=== PATIENT | male | born 1995 | race Caucasian/White ===

== ENCOUNTER 2020-03-08 12:00 | Emergency (ER) | payer OTHER, SELFPAY ==
[2020-03-08 12:43] VITALS: BP 146/80; PULSE 73; RESP 18; TEMP 37; O2SAT 100
--- NOTE | 2020-03-08 13:24 | ED.GENADULT ---
HPI - General Adult General Chief complaint: Abdominal Pain Stated complaint: Abd pain Time Seen by Provider: 03/08/20 13:20 Source: patient Mode of arrival: ambulatory Limitations: no limitations History of Present Illness HPI narrative: Keon Krueger is a 24 yo with a PMH of significant ulcerative colitis. He comes to express care with mid-abd pain. Patient states that started on has continued through the weekend with no improvement, describes more of a spastic pain where it gets painful but even at rest is about a 4 out of 10. 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 Related Data Home Medications Medication Instructions Recorded Confirmed mesalamine [Apriso] 0.375 g PO DAILY 03/08/20 03/08/20 Allergies Allergy/AdvReac Type Severity Reaction Status Date / Time UNKNOWN AdvReac Unknown Unknown Uncoded 03/08/20 13:12 Review of Systems Review of Systems: Narrative: CONSTITUTIONAL: Denies fever, chills, sweats. EYES: Denies visual changes, redness, discharge. ENT: Denies rhinorrhea, congestion, sore throat, otalgia. CARDIOVASCULAR: Denies chest pain, palpitations, edema. RESPIRATORY: Denies dyspnea, wheezing, cough GASTROINTESTINAL: Has abdominal pain, nausea, vomiting, has diarrhea with blood. GENITOURINARY: Denies dysuria, hematuria, abnormal discharge SKIN: Denies rash or itching. NEUROLOGIC: Denies numbness, or focal weakness. PSYCHIATRIC: Denies anxiety or depression. PMFSH Family History Family History Other Colitis Social History Social History (Updated 03/08/20 @ 13:34 by Abbie Torres CNP) Smoking status: Never smoker Alcohol intake: never Comments At time of signature, I agree with nursing past medical, surgical, social and family history. There is no relevant family history pertinent to the presenting complaint. Blood pressure is elevated at this visit probably due to the circumstances of the visit Exam Narrative: Exam Narrative: GENERAL: This is a well-nourished, well-developed patient, in moderate distress. Patient is pale HEAD: normocephalic, atraumatic. EYES: Sclera clear/white. Vision is grossly intact. EARS: External ears normal. Hearing grossly intact. NOSE: External nose normal without nasal discharge, nares without redness, no rhinorrhea. THROAT: Mucous membranes moist, NECK: Neck supple, CARDIOVASCULAR: Regular rate and rhythm without murmurs, gallops, or rubs. RESPIRATORY: Clear to auscultation. Breath sounds equal bilaterally. No wheezes, rales, or rhonchi. GASTROINTESTINAL: Abdomen soft, tender mid abdomen, states pain is spastic, SKIN: warm, intact with no suspicious lesions or rash, good texture and turgor. NEURO: awake, alert, and oriented to person, place and time. There were no obvious focal neurologic abnormalities. Steady gait EXTREMITIES: Normal range of motion. BACK: Nontender without deformity Course Course Emergency Course: UA-results show trace of blood, patient denies dysuria Discussion with patient and the fact that he is compliant with his ulcerative colitis medication, the patient go to the ER at [facility] GI physician is on staff Patient probably needs blood work to rule out other differential diagnosis for abdominal pain in addition to a CT of his abdomen Referred to acute care hospital emergency room for further follow-up Vital Signs Vital signs: Vital Signs Temperature 98.6 F 03/08/20 12:43 Pulse Rate 73 03/08/20 12:43 Respiratory Rate 18 03/08/20 12:43 Blood Pressure 146/80 H 03/08/20 12:43 Pulse Oximetry 100 03/08/20 12:43 Temperature 98.6 F 03/08/20 12:43 Pulse Rate 73 03/08/20 12:43 Respiratory Rate 18 03/08/20 12:43 Blood Pressure 146/80 H 03/08/20 12:43 Pulse Oximetry 100 03/08/20 12:43 Medical Decision Making Differential Diagnos
== END 2020-03-08 13:40 | disposition short-term general hospital (02) ==
PROVIDERS: Emergency Provider Nurse Practitioner; PCP Physician Assistant
DX: R10.84 Generalized abdominal pain (principal)
CPT/HCPCS: 81003; 99212; G0463

== ENCOUNTER 2020-08-02 16:40 | Outpatient (CLI) | payer OTHER, SELFPAY ==
[2020-08-02 17:18] LABS: Basophils Absolute Auto 0.01 K/mm3 (0.00-0.10); Basophils Percent Auto 0.1 % (0.0-1.0); Immature Granulocyte Absolute 0.31 K/mm3 (0.00-0.00); Immature Granulocyte Percent A 2.1 % (0.0-0.0); Lymphocytes Absolute Auto 1.17 K/mm3 (1.10-4.50); Lymphocytes Percent Auto 8.1 % (18.0-42.0); Mean Corpuscular Hemoglobin 16.1 pg (27.0-31.0); Mean Corpuscular Volume 70.1 fL (78.0-102.0); Monocytes Absolute Auto 0.56 K/mm3 (0.10-0.90); Monocytes Percent Auto 3.9 % (2.0-11.0); Neutrophils Absolute Auto 12.4 K/mm3 (1.7-7.2); Neutrophils Percent Auto 85.8 % (50.0-70.0); Nucleated Red Blood Cells Absolute Auto 0.07 K/mm3 (0.00-0.00); Nucleated Red Blood Cells Perc 0.5 % (0-0.0); Platelet Count Result 511 K/mm3 (150-420); Red Blood Count 2.54 M/mm3 (4.70-6.10); Red Cell Distribution Width 21.1 % (11.6-14.4); White Blood Count 14.5 K/mm3 (4.8-10.8)
[2020-08-02 17:58] LABS: Alanine Aminotransferase 17 U/L (16-63); Albumin Level 3.5 g/dL (3.4-5.0); Alkaline Phosphatase 55 U/L (46-116); Anion Gap 8 mmol/L (8-16); Aspartate Amino Transferase < 10 U/L (15-37); Bilirubin,Total 0.2 mg/dL (0.00-1.00); Blood Urea Nitrogen 17 mg/dL (7-18); Calcium 8.8 mg/dL (8.5-10.1); Carbon Dioxide 26 mmol/L (21-32); Chloride 104 mmol/L (98-108); Estimated Glomerular Filt Rate > 60; Glucose 145 mg/dL (70-99); Osmolality Calculated 290 mOsm/kg (285-295); Potassium 4.6 mmol/L (3.5-5.1); Sodium 138 mmol/L (136-145); Thyroid Stimulating Hormone 0.95 uIU/mL (0.36-3.74)
[2020-08-02 18:08] LABS: Hemoglobin 4.1 g/dL (14.0-18.0)
[2020-08-02 18:09] LABS: Hematocrit 17.8 % (40.0-54.0)
[2020-08-04 18:01] LABS: SARS-CoV-2 RNA PCR Negative
== END 2020-08-02 16:41 | disposition home or self-care (01) ==
LOC: CHSLAB 16:47
PROVIDERS: PCP Physician Assistant; Visit Provider Physician Assistant
DX: B34.9 Viral infection, unspecified (principal); R53.83 Other fatigue; Z20.828 Contact with and (suspected) exposure to other viral communicable diseases
CPT/HCPCS: 36415; 80053; 84439; 84443; 85025; 87635; C9803; U0003

== ENCOUNTER 2020-08-02 17:59 | Observation (INO) | payer OTHER, SELFPAY ==
[2020-08-02] VITALS (9 sets, daily range): BP systolic 125–149; BP diastolic 62–79; PULSE 70–120; RESP 18–24; TEMP 36.8–37.9; O2SAT 99–100; BMI 30.7
[2020-08-02 18:14] LABS: Basophils Absolute Auto 0.01 K/mm3 (0.00-0.10); Basophils Percent Auto 0.1 % (0.0-1.0); Immature Granulocyte Absolute 0.33 K/mm3 (0.00-0.00); Immature Granulocyte Percent A 2.4 % (0.0-0.0); Lymphocytes Absolute Auto 1.22 K/mm3 (1.10-4.50); Lymphocytes Percent Auto 8.7 % (18.0-42.0); Mean Corpuscular HGB Conc 23.9 g/dL (32.0-36.0); Mean Corpuscular Hemoglobin 16.5 pg (27.0-31.0); Mean Corpuscular Volume 69.2 fL (78.0-102.0); Mean Platelet Volume 10.6 fl (8.7-11.0); Monocytes Absolute Auto 0.64 K/mm3 (0.10-0.90); Monocytes Percent Auto 4.6 % (2.0-11.0); Neutrophils Absolute Auto 11.8 K/mm3 (1.7-7.2); Neutrophils Percent Auto 84.2 % (50.0-70.0); Nucleated Red Blood Cells Absolute Auto 0.07 K/mm3 (0.00-0.00); Nucleated Red Blood Cells Perc 0.5 % (0-0.0); Platelet Count Result 505 K/mm3 (150-420); Red Cell Distribution Width 21.2 % (11.6-14.4)
[2020-08-02 18:18] LABS: Hemoglobin 4.3 g/dL (14.0-18.0)
--- NOTE | 2020-08-02 18:25 | ED.GENADULT ---
HPI - General Adult General Chief complaint: Recheck/Abnormal Lab/Rx Stated complaint: rebecca wants pt to get a blood transfusion Source: patient and family Mode of arrival: ambulatory Limitations: no limitations History of Present Illness HPI narrative: Keon is a 24M with a PMH of ulcerative colitis that was sent to the ED by his doctor for a critical low hemoglobin. He has had worsening fatigue and exercise intolerance for 4 weeks and has been getting very pale. He denies any CP, SOB, N/V, hematemesis, hematochezia, and melena. He is on a prednisone burst currently and believes his stool is getting more formed. Related Data Home Medications Medication Instructions Recorded Confirmed mesalamine [Apriso] 0.375 g PO DAILY 03/08/20 08/02/20 prednisone See Rx Instructions .ROUTE .COMPLEX 08/02/20 08/02/20 Allergies Allergy/AdvReac Type Severity Reaction Status Date / Time UNKNOWN AdvReac Unknown Unknown Uncoded 03/08/20 13:12 Review of Systems Constitutional: Constitutional: Denies chills and Denies fever(s) Eyes: Eyes: Reports no additional eye complaints ENT: Reports system reviewed and no additional complaints, except as documented Cardiovascular: Cardiovascular: Reports as per HPI and Reports no additional cardiovascular complaints Respiratory: Respiratory: Reports as per HPI Gastrointestinal: Gastrointestinal: Reports as per HPI Genitourinary: Genitourinary: Reports no additional male genitourinary complaints Musculoskeletal: Musculoskeletal: Reports no additional musculoskeletal complaints Integumentary/Breasts: Skin/Breast: Reports system reviewed and no additional complaints, except as docu Neurologic: Reports system reviewed and no additional complaints, except as documented Psychiatric: Psychiatric: Reports no additional psychiatric complaints [facility] Family History Family History Other Colitis Social History Social History Smoking status: Never smoker Alcohol intake: never Exam Const: General: no acute distress and alert Orientation/consciousness: patient oriented x3 Limitations: No altered mental status HENMT: Head: normal to inspection Eyes: Conjunctivae: conjunctivae normal Pupils: Equal, round and reactive pupils present Neck: Neck: normal visual inspection Chest: Chest palpation & inspection: normal inspection of the chest Resp: Effort & Inspection: normal respiratory effort Auscultation: clear to auscultation bilaterally Cardio: Rate: tachycardic Rhythm: regular rhythm GI: GI Palp: Yes Soft to palpation, No Tenderness to palpation present (GI) and No Guarding due to palpation present (GI) Urinary Catheter: Urinary Catheter: patent and draining Back/Spine/Pelvis: Back: no CVA tenderness Skin: Rashes: no rashes Other: Very pale color Neuro: General: patient oriented x3 and moves all extremities Extrem: General: normal to inspection Psych: Mental Status: mental status grossly normal Course Course Emergency Course: Keon was evaluated. Labs were ordered. Repeat labs showed persistently low hgb. Ordered 2u PRBC. I attempted to contact his GI Dr. (Dr. 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 He will be admitted to observation for transfusions and monitoring. His GI group will be contacted tomorrow. Will continue prednisone and mesalamine. Vital Signs Vital signs: Vital Signs Temperature 99.3 F 08/02/20 18:17 Pulse Rate 120 H 08/02/20 18:17 Respiratory Rate 24 H 08/02/20 18:17 Blood Pressure 149/79 H 08/02/20 18:17 Pulse Oximetry 100 08/02/20 18:17 Temperature 99.3 F 08/02/20 18:17 Pulse Rate 120 H 08/02/20 18:17 Respiratory Rate 24 H 08/02/20 18:17 Blood Pressure 149/79 H 08/02/20 18:17 Pulse Oximetry 100 08/02/20 18:17 Medical Decision Making Vital Signs Vital Signs
[2020-08-02] MEDS: diphenhydrAMINE HCl CAP 25 MG CAPSULE 50 MG PO (19:52)
[2020-08-02 20:01] LABS: Add Urine Microscopic? NO; Appearance Urine Clear (Clear); Bilirubin Urine Negative (Negative); Blood Urine Negative (Negative); Color Urine Yellow (Yellow); Glucose Urine UA Negative (Negative); Ketones Urine Negative (Negative); Leukocyte Esterase Ur Negative (Negative); Nitrate Urine Negative (Negative); Protein Urine Negative (Negative); Specific Grav Ur 1.015 (1.010-1.020); Urobilinogen Urine 0.2 mg/dL (0.2-1.0); pH Urine 6.5 (5.0-8.0)
--- NOTE | 2020-08-02 20:12 | PC.NURSE ---
report to kaleigh pt to go to room 204
--- NOTE | 2020-08-02 20:50 | ADMGEN ---
This patient, Keon Krueger, was admitted to 2nd Floor Room 204-2. Patient oriented to hospital policies and general routines including ID bracelet, bed and alarms, visiting hours, pain management, procedures, bathroom and other care routines, personal items, smoking policy, room service/diet, and visiting hours. Patient encouraged to report perceived risks to care and to ask questions if they do not understand what they are told or what they should do.
[2020-08-02 22:46] LABS: Hematocrit 17.6 % (40.0-54.0); Hemoglobin 4.6 g/dL (14.0-18.0)
[2020-08-03] VITALS (16 sets, daily range): BP systolic 117–133; BP diastolic 68–90; PULSE 70–98; RESP 18; TEMP 36.1–37.4; O2SAT 97–100
[2020-08-03 02:40] LABS: Basophils Absolute Auto 0.01 K/mm3 (0.00-0.10); Basophils Percent Auto 0.1 % (0.0-1.0); Eosinophils Absolute Auto 0.03 K/mm3 (0.02-0.50); Eosinophils Percent Auto 0.2 % (1.0-6.0); Immature Granulocyte Absolute 0.16 K/mm3 (0.00-0.00); Immature Granulocyte Percent A 1.2 % (0.0-0.0); Lymphocytes Absolute Auto 3.61 K/mm3 (1.10-4.50); Mean Corpuscular HGB Conc 26.7 g/dL (32.0-36.0); Mean Corpuscular Hemoglobin 19.4 pg (27.0-31.0); Mean Corpuscular Volume 72.7 fL (78.0-102.0); Mean Platelet Volume 10.3 fl (8.7-11.0); Monocytes Absolute Auto 1.19 K/mm3 (0.10-0.90); Monocytes Percent Auto 8.6 % (2.0-11.0); Neutrophils Absolute Auto 8.9 K/mm3 (1.7-7.2); Neutrophils Percent Auto 63.9 % (50.0-70.0); Nucleated Red Blood Cells Absolute Auto 0.06 K/mm3 (0.00-0.00); Nucleated Red Blood Cells Perc 0.4 % (0-0.0); Platelet Count Result 421 K/mm3 (150-420); Red Blood Count 2.89 M/mm3 (4.70-6.10); Red Cell Distribution Width 22.2 % (11.6-14.4); White Blood Count 13.9 K/mm3 (4.8-10.8)
[2020-08-03 02:45] LABS: Hemoglobin 5.6 g/dL (14.0-18.0)
--- NOTE | 2020-08-03 07:46 | PM.IMHP ---
H&P: HPI History of Present Illness Date/Time: 08/03/20 07:46 Chief Complaint: Weakness, fatigue Narrative: Keon Krueger is a 24 year old male who states he has been dealing with his ulcerative colitis for a while last colonoscopy approximately 1 year ago. Patient states that approximately 2 weeks ago he was throwing up and in the emesis there were some streaks of blood. Patient made a sound like it was minimal. Patient states he has also had a little bit of blood in his stool as of 2 weeks ago due to a flare up of his UC. Patient made this sound like it was a minimal event as well. Patient denies ever having to have transfusions in the past. Patient currently taking prednisone and mesalamine for his last flare-up. Patient denies any chest pain at this time nor did he have any prior to coming to the hospital. Does admit to being tired with little shortness of breath prior to coming to the ER. Review of Systems Constitutional: Constitutional: Reports no additional constitutional complaints, Denies body ache(s), Denies chills, Denies fever(s) and Reports weakness Cardiovascular: Cardiovascular: Reports no additional cardiovascular complaints, Denies chest pain, Denies chest pain at rest and Denies chest pain with activity Respiratory: Respiratory: Reports no additional respiratory complaints, Denies dyspnea and Reports dyspnea on exertion Gastrointestinal: Gastrointestinal: Reports no additional gastrointestinal complaints, Denies melena, Denies hematochezia and Denies GI cramping PMFSH Past Medical History Medical History (Updated 08/03/20 @ 08:45 by TYRELL Euceda) Ulcerative colitis Family History Family History Other Colitis Social History Social History Smoking status: Never smoker Alcohol intake: never Substance use: never Gender identity (if verbalized by the patient): Male Spiritual care concerns: No Meds Home Medications and Allergies Home Medications Medication Instructions Recorded Confirmed Type mesalamine [Apriso] 0.375 g PO DAILY 03/08/20 08/02/20 History prednisone See Rx Instructions .ROUTE .COMPLEX 08/02/20 08/02/20 History Allergies Allergy/AdvReac Type Severity Reaction Status Date / Time UNKNOWN AdvReac Unknown Unknown Uncoded 03/08/20 13:12 Vital Signs Vital Signs - 24 hr 08/02/20 18:17 08/02/20 19:43 08/02/20 19:59 Temperature 99.3 F 100 F H 100 F H Pulse Rate 120 H 98 97 Respiratory Rate 24 H 21 H 20 Blood Pressure 149/79 H 125/72 131/77 Pulse Oximetry 100 100 100 08/02/20 20:15 08/02/20 20:45 08/02/20 20:59 Temperature 100.3 F H 100.3 F H Pulse Rate 83 83 Respiratory Rate 20 18 18 Blood Pressure 125/72 132/73 132/73 Pulse Oximetry 99 100 100 08/02/20 21:59 08/02/20 22:56 08/02/20 23:12 Temperature 98.2 F 98.6 F 99 F Pulse Rate 70 81 85 Respiratory Rate 18 18 18 Blood Pressure 129/72 127/70 130/62 Pulse Oximetry 100 100 100 08/03/20 00:12 08/03/20 01:08 08/03/20 02:00 Temperature 98.5 F 98.5 F 98.3 F Pulse Rate 88 80 76 Respiratory Rate 18 18 18 Blood Pressure 118/85 127/68 120/74 Pulse Oximetry 99 99 99 08/03/20 04:01 08/03/20 04:20 08/03/20 05:20 Temperature 98 F 98 F 97 F L Pulse Rate 79 72 81 Respiratory Rate 18 18 18 Blood Pressure 122/76 125/73 117/82 Pulse Oximetry 100 98 97 08/03/20 07:15 Temperature 97.6 F Pulse Rate 70 Respiratory Rate 18 Blood Pressure 119/83 Pulse Oximetry 100 Exam Const: General: cooperative, comfortable, no acute distress, alert, awake and Physically active Nutritional Appearance: overweight Resp: Effort & Inspection: normal respiratory effort Auscultation: clear to auscultation bilaterally Cardio: Rate: regular rate Rhythm: regular rhythm Heart sounds: S2 normal heart sound present GI: GI Palp: Yes Soft to palpation and No Tenderness to palpation present (
[2020-08-03 08:15] LABS: Hematocrit 22.8 % (40.0-54.0)
[2020-08-03 08:22] LABS: Hemoglobin 6.4 g/dL (14.0-18.0)
--- NOTE | 2020-08-03 08:24 | PC.NURSE ---
Hospitalist notified of H/H results of 6.4, 22.8
[2020-08-03] MEDS: predniSONE 10 MG TABLET 50 MG BY MOUTH (08:25)
[2020-08-03 10:46] LABS: Reticulocyte Hemoglobin Conten 15.7 pg (28.0-35.0); Reticulocyte Percent 3.82 % (0.50-1.50)
--- NOTE | 2020-08-03 11:20 | PC.NURSE ---
This nurse spoke with patients Mother. Patient states mother can have information about patient. Mother reports that the 2 weeks prior to [place] patient had had bleeding in stool. States Patient went to doctor and that he was being treated with PO antibiotics. Due to condition not improving patient started oral prednisone onf 07-24-20.
[2020-08-03 11:21] LABS: Folic Acid 10.5 ng/mL (8.6->20); Iron 12 ug/dL (65-175); Percent Iron Saturation 3 % (12-57); Vitamin B12 287 pg/mL (193-986)
[2020-08-03 11:35] LABS: Ferritin < 1 ng/mL (26-388)
--- NOTE | 2020-08-03 12:50 | PC.NURSE ---
Unit of PRBC done transfusing. Patient tolerated well. Normal saline running till IV line clear. Patient resting in bed. Denies further needs.
[2020-08-03 13:53] LABS: Hematocrit 29.1 % (40.0-54.0); Hemoglobin 8.6 g/dL (14.0-18.0)
[2020-08-03 19:52] LABS: Occult Blood Positive (Negative)
--- NOTE | 2020-08-03 22:37 | PC.NURSE ---
pt resting in bed on computer, denies any needs at this time
--- NOTE | 2020-08-03 23:08 | PC.NURSE ---
pt c/o chest pressure with inspiration, Dr Little called and will come evaluate pt
--- NOTE | 2020-08-03 23:50 | PC.NURSE ---
Patient is sitting up in bed on his laptop. He states his chest pain has subsided now. He states he has had this since he was little and was told previously it was inflammation and it goes away as fast as it comes on. He states his mother had the same type of pain. Patient requested something to eat, ham sandwich and albert crackers provided. No complaints at this time and call light in reach.
--- NOTE | 2020-08-04 02:35 | PC.NURSE ---
Patient is laying down but awake. Denies any complaints at this time. Call light and needed items within reach.
[2020-08-04 04:00] VITALS: BP 120/80; PULSE 76; RESP 18; TEMP 36.6; O2SAT 99
[2020-08-04 05:42] LABS: Hematocrit 26.6 % (40.0-54.0); Hemoglobin 7.6 g/dL (14.0-18.0); Mean Corpuscular HGB Conc 28.6 g/dL (32.0-36.0); Mean Corpuscular Hemoglobin 21.4 pg (27.0-31.0); Mean Corpuscular Volume 74.9 fL (78.0-102.0); Platelet Count Result 370 K/mm3 (150-420); Red Blood Count 3.55 M/mm3 (4.70-6.10); Red Cell Distribution Width 24.7 % (11.6-14.4)
[2020-08-04 05:53] LABS: Anion Gap 9 mmol/L (8-16); Blood Urea Nitrogen 20 mg/dL (7-18); Carbon Dioxide 27 mmol/L (21-32); Chloride 104 mmol/L (98-108); Estimated CRCL calculation 125 ml/min; Estimated Glomerular Filt Rate > 60; Glucose 87 mg/dL (70-99); Osmolality Calculated 291 mOsm/kg (285-295); Potassium 4.7 mmol/L (3.5-5.1); Sodium 140 mmol/L (136-145)
[2020-08-04 07:50] VITALS: BP 127/77; PULSE 68; RESP 18; TEMP 36.9; O2SAT 100
[2020-08-04] MEDS: predniSONE 10 MG TABLET 50 MG BY MOUTH (09:15)
[2020-08-04] MEDS: FERROUS SULFATE 324 MG TABLET PO (09:15)
[2020-08-04] MEDS: PANTOPRAZOLE SODIUM IV 40 MG VIAL IV PUSH (09:16)
[2020-08-04 09:30] LABS: Hematocrit 29.5 % (40.0-54.0); Hemoglobin 8.2 g/dL (14.0-18.0)
--- NOTE | 2020-08-04 10:26 | PM.DS ---
DS: Admitting Diagnosis Admitting Diagnosis Admitting Diagnosis: severe anemia <Amauri SiegelLam VaughnTYRELL pollack - Last Filed: 08/04/20 10:44> DS: Discharge Diagnosis Discharge Diagnosis (1) Severe anemia: Code(s): D64.9 - Anemia, unspecified <Amauri LutherTYRELL - Last Filed: 08/04/20 10:44> Status: Acute <Amauri LutherTYRELL - Last Filed: 08/04/20 10:44> Assessment and Plan: 08/03/2020 Patient's hemoglobin was 4.1 upon arrival in the ER now after 3 units PRBCs hemoglobin has risen to 6.4 hematocrit 22.8 and patient will be getting his 4th unit of PRBCs and of course will recheck H&H thereafter, anemia workup 08/04/2020 H/H 8.2/29.5 now, H/H 7.6/26.6 at 0500 stable at this time and Pt has appointment with his GI Dr. Mcbride in the morning tomorrow <Amauri ChristalTYRELL Stone - Last Filed: 08/04/20 10:44> (2) Ulcerative colitis: Code(s): K51.90 - Ulcerative colitis, unspecified, without complications <Amauri SiegelTYRELL Stone - Last Filed: 08/04/20 10:44> Status: Acute <Amauri MendesTYRELL pollack - Last Filed: 08/04/20 10:44> Assessment and Plan: 08/03/2020 for the time being continue with home medications, will attempt to contact his GI provider, last colonoscopy approximately 1 year ago, will check stool for blood, Dr. Mcbride was out of the office however was able to talk with medical office secretary, patient has an appointment on August 12, 2020 which is a normal follow-up appointment, last colonoscopy was done January 04 of this year showing inflammation biopsy taken improve the results read to me no concern for any cancer chest indicated inflammation, on discharge will give patient a script for repeat blood work so that there is also be ready for his August 12, 2020 appointment 08/04/2020 appointment changed to tomorrow AM with Dr. Mcbride, pt to continue with current regimen of home medications, report accurate accounts of bloody stools and blood in vomit, Pt states that he did not want to take his steroid medication because he is going to be soon and did not want to gain weight as a side effect of the medication. <Amauri ChristalTYRELL Stone - Last Filed: 08/04/20 10:44> DS: Summary Hospital Course Hospital Course: Patient received blood transfusions hemoglobin that increased his hemoglobin and this was recheck and appears to be stable at this time. Patient does have a follow-up appoint with his GI specialist tomorrow morning and will need to follow-up with his primary within a week <TYRELL Euceda - Last Filed: 08/04/20 10:44> Time Spent with Patient Time attestation: Total time spent providing and/or coordinating discharge services: < 30 Minutes <Amauri ChristalTYRELL Stone - Last Filed: 08/04/20 10:44> Exam Const: General: cooperative, comfortable, no acute distress, alert, awake and Physically active <TYRELL Euceda - Last Filed: 08/04/20 10:44> Resp: Effort & Inspection: normal respiratory effort <Amauri ChristalTYRELL Stone - Last Filed: 08/04/20 10:44> Auscultation: clear to auscultation bilaterally <Amauri SiegelTYRELL Stone - Last Filed: 08/04/20 10:44> Cardio: Rate: regular rate <Amauri ChristalTYRELL Stone - Last Filed: 08/04/20 10:44> Rhythm: regular rhythm <Amauri ChristalTYRELL Stone - Last Filed: 08/04/20 10:44> Heart sounds: S1 normal heart sound present and S2 normal heart sound present <Amauri ChristalTYRELL Stone - Last Filed: 08/04/20 10:44> GI: GI Palp: Yes Soft to palpation and No Tenderness to palpation present (GI) <Amauri SiegelTYRELL Stone - Last Filed: 08/04/20 10:44> Auscultation: normal bowel sounds <Amauri ChristalTYRELL Stone - Last Filed: 08/04/20 10:44> Skin: General skin exam: pallor (improved a little since yesterday) <TYRELL Euceda - Last Filed: 08/04/20 10:44> Neuro: General: oriented to person, oriented to place and oriented to time <TYRELL Euceda - Last Filed: 08/04/20 10:44> Cranial nerves: Yes CN's
--- NOTE | 2020-08-04 12:05 | PC.NURSE ---
Patients mother here to transport him home. All belongings sent home with patient. Patient accompanied to front door, patient ambulated well. Left via private vehicle with parent. All discharge instructions sent home with patient.
[2020-08-07 20:51] LABS: Transferrin 335 mg/dL (188-341)
--- NOTE | 2020-08-12 11:55 | PC.NURSE ---
Pt states he received and understood his discharge instructions. Has no other comments.
== END 2020-08-04 12:05 | disposition home or self-care (01) ==
LOC: CHSED 19:49 → CHS2ND 20:13
PROVIDERS: Nurse Practitioner Family; Admitting Provider Family Medicine; Emergency Provider Family Medicine; PCP Physician Assistant; Visit Provider Family Medicine
DX: D64.9 Anemia, unspecified (principal); K51.90 Ulcerative colitis, unspecified, without complications
CPT/HCPCS: 36415; 36430; 80048; 81003; 82272; 82607; 82728; 82746; 83540; 83550; 84466; 85014; 85018; 85025; 85027; 85046; 86850; 86900; 86901; 86923; 96374; 99285; A9270; C9113; G0378; J7040; J7512; P9016

== ENCOUNTER 2021-08-26 11:58 | Emergency (ER) | payer OTHER, SELFPAY ==
[2021-08-26 12:05] VITALS: BP 109/89; PULSE 83; RESP 16; TEMP 36.9; O2SAT 99
[2021-08-26 12:08] VITALS: BP 109/89; PULSE 83; RESP 16; TEMP 36.9; O2SAT 99
--- NOTE | 2021-08-26 12:09 | ED.EAR ---
HPI - Ear Problem General Chief complaint: Ear Stated complaint: EAR WAX Time Seen by Provider: 08/26/21 12:09 Source: patient, RN notes reviewed and old records reviewed Mode of arrival: ambulatory Limitations: no limitations History of Present Illness HPI Narrative: 25-year-old male presents to [facility] with complaints of pain to the right ear since last p.m. Patient reports that his right ear feels clogged and he has some decreased hearing and also some feelings of dizziness today and he had to leave work today because of his symptoms. Patient states he did insert gently a Q-tip into his right ear last night but did not improve his symptoms. Patient reports hearing being muffled. Patient denies any acute fevers chills or sweats, voices no sore throat or any nasal congestion or drainage. He reports he has had his COVID vaccinations. MD Complaint: ear pain Location: right ear Related Data Home Medications Medication Instructions Recorded Confirmed azathioprine 08/26/21 famotidine 08/26/21 Allergies Allergy/AdvReac Type Severity Reaction Status Date / Time UNKNOWN AdvReac Unknown Unknown Uncoded 03/08/20 13:12 Review of Systems Review of Systems: CONSTITUTIONAL: Denies fever, chills, or sweats. EYES: Denies visual changes, redness, or discharge. ENT: Denies rhinorrhea, congestion, sore throat, positive for right ear otalgia, and decreased hearing in right ear with ear feeling clogged CARDIOVASCULAR: Denies chest pain, palpitations, or edema. RESPIRATORY: Denies cough or dyspnea. GASTROINTESTINAL: Denies abdominal pain, nausea, vomiting, or diarrhea. GENITOURINARY: Denies dysuria or hematuria. SKIN: Denies rash or itching. MUSCULOSKELETAL: Denies back pain, joint pain, or myalgia. NEUROLOGIC: Denies headache, numbness, or weakness. states some dizziness PSYCHIATRIC: Denies anxiety or depression. All systems reviewed & are unremarkable except as noted in HPI and below PMFSH Past Medical History Medical History (Updated 08/26/21 @ 12:34 by Kristal Quiles NP) Ulcerative colitis Family History Family History Other Colitis Social History Social History Smoking status: Never smoker Alcohol intake: never Substance use: never Gender identity (if verbalized by the patient): Male Spiritual care concerns: No Comments At time of signature, agree with nursing past medical, surgical, social and family history. There is no relevant family history pertinent to the presenting complaint Exam Narrative: GENERAL: Well-appearing, well-nourished, and in no acute distress. HEAD: Normocephalic, atraumatic. EYES: PERRLA and EOMI. ENT: Nares clear, no rhinorrhea or epistaxis. Mucous membranes moist. TM's normal with good light reflex, right ear canal was red and irritated prior to irrigation of right ear to remove cerumen, small amount of ear wax remains in right ear canal. throat pink with no lesions exudates or tonsil swelling noted. NECK: Supple. no lymphadenopathy CHEST: Clear to auscultation. No respiratory distress. no cough SAO2 99% on room air HEART: Regular rate and rhythm. No murmur heard. Normal peripheral pulses. ABDOMEN: Soft, nontender, nondistended, normal active bowel sounds. EXTREMITIES: Normal range of motion. No edema. SKIN: Warm, dry, no rash. NEURO: No focal deficits. Alert and oriented x3. Course Course Level of Care: Express Care Visit Vital Signs Vital signs: Vital Signs Temperature 36.9 C 08/26/21 12:05 Pulse Rate 83 08/26/21 12:05 Respiratory Rate 16 08/26/21 12:05 Blood Pressure 109/89 08/26/21 12:05 Pulse Oximetry 99 08/26/21 12:05 Temperature 36.9 C 08/26/21 12:08 Pulse Rate 83 08/26/21 12:08 Respiratory Rate 16 08/26/21 12:08 Blood Pressure 109/89 08/26/21 12:08 Pulse Oximetry 99 08/26/21 12:08 Procedures Ear Wax R
== END 2021-08-26 12:44 | disposition home or self-care (01) ==
PROVIDERS: Emergency Provider Registered Nurse; PCP Physician Assistant
DX: H61.21 Impacted cerumen, right ear (principal); H60.311 Diffuse otitis externa, right ear
CPT/HCPCS: 69210; 99213; A9270; G0463

== ENCOUNTER 2025-02-27 05:43 | Emergency (ER) | payer OTHER, SELFPAY ==
--- NOTE | ~2025-02-27 | CT_ITS ---
EXAMINATION: CT abdomen pelvis w con DATE: 02/27/2025 06:29 INDICATION: Right lower quadrant pain. History of colitis. TECHNIQUE: Computed tomography (CT) of the abdomen and pelvis was performed with 100 cc Omnipaque 350 intravenous contrast. The dose-length product was 1155.74 mGy-cm. Automated exposure control and ite rative reconstruction technique were employed. COMPARISON: None. FINDINGS: Dependent atelectasis. Heart size normal. No significant pleural or pericardial effusion. S mall hiatal hernia. There is a 4 mm right UPJ stone with mild hydronephrosis. There is a punctate 2 m m nonobstructing right renal stone. There is malrotation of the left kidney. Normal appendix. The aster er, spleen, pancreas, adrenal glands are unremarkable. Nonobstructive bowel gas pattern. No significa nt vascular abnormality. No lymphadenopathy. IMPRESSION: 1. Right UPJ stone with mild hydronephrosis. 2: Nonobstructing right nephrolithiasis. Reviewed, dictated and finalized at location A.
[2025-02-27 05:43] VITALS: BP 155/96; PULSE 82; RESP 24; TEMP 35.7; O2SAT 99
--- NOTE | 2025-02-27 05:44 | ED_ITS ---
HPI - Abdominal Pain General Chief Complaint: Abdominal Pain Stated Complaint: ABDOMINAL PAIN Time Seen by Provider: 02/27/25 05:44 Source: patient and family Mode of arrival: ambulatory Limitations: no limitations History of Present Illness HPI narrative: patient is a 29-year-old male with right lower quadrant abdominal pain for the past 2 hours at home. He has history of ulcerative colitis and was just in the hospital for the same. Associated nausea vomiting without diarrhea. normal BM yesterday. He did have a little diarrhea with the colitis flare last week. History of C diff. no history of kidney stones. MD elicited complaint: abdominal pain ( right lower quadrant) Pertinent past history: other ( Ulcerative colitis) Onset (ago): hour(s) (2) Pain Consistency: constant Location: RLQ Severity: severe Pain scale (0-10): 9 Quality: sharp Radiation: RUQ Migration to: no migration Exacerbating factors: nothing Relieving factors: nothing Context: confirms other ( acute onset of right lower quadrant abdominal pain 2 hours ago with associated nausea vomiting) Associated symptoms: nausea and vomiting Treatments prior to arrival: other ( none) Related Data Home Medications ?Medication ?Instructions ?Recorded ?Confirmed ?Last Taken ?Type azathioprine 50 mg tablet 08/26/21 Unknown History famotidine 40 mg tablet 08/26/21 Unknown History Allergies Allergy/AdvReac Type Severity Reaction Status Date / Time UNKNOWN AdvReac Unknown Unknown Uncoded 02/27/25 05:50 Review of Systems 2 Review of Systems: All systems reviewed & are unremarkable except as noted in HPI and below Constitutional: Constitutional: Reports no additional constitutional complaints Eyes: Eyes: Reports no additional eye complaints ENT: Reports system reviewed and no additional complaints, except as documented Cardiovascular: Cardiovascular: Reports no additional cardiovascular complaints Respiratory: Respiratory: Reports no additional respiratory complaints Gastrointestinal: Gastrointestinal: Reports no additional gastrointestinal complaints Genitourinary: Genitourinary: Reports no additional male genitourinary complaints Musculoskeletal: Musculoskeletal: Reports no additional musculoskeletal complaints Integumentary/Breasts: Skin/Breast: Reports system reviewed and no additional complaints, except as docu Neurologic: Reports system reviewed and no additional complaints, except as documented Psychiatric: Psychiatric: Reports no additional psychiatric complaints Endocrine: Endocrine: Reports no additional endocrine complaints Hematologic/Lymphatic: Hematologic/Lymphatic: Reports no additional hematologic/lymphatic complaints Allergic/Immunologic: Allergic/Immunologic: Reports no additional allergic/immunologic complaints [facility] Past Medical History Medical History Ulcerative colitis Family History Family History Other Colitis Social History Social History Smoking status: Never smoker Alcohol intake: never Substance use: never Gender identity (if verbalized by the patient): Male Spiritual care concerns: No Exam 2 Const: General: ill appearing Nutritional Appearance: well nourished O rientation/consciousness: patient oriented x3 Limitations: no limitations Other: acute distress of pain HENMT: Head: normal to inspection Ears: external ears normal F radha/Nose/Sinus: Normal external nose present Eyes: Conjunctivae: conjunctivae normal Pupils: Equal, round and reactive pupils present EOM: EOMs intact bilaterally Neck: Neck: normal visual inspection Chest: Chest palpation & inspection: normal inspection of the chest Resp: Effort & Inspection: normal respiratory effort and not labored A uscultation: clear to auscultation bilaterally and no crackles Cardio: Rate: regular rate Rhythm: regular rhythm Heart sounds: no murmurs GI: Inspection: non-distended GI Palp: Yes Soft to palpation ( slight firmness appreciated), Yes Tenderness to palpation present (GI) ( right lower quadrant /left lower quadrant), Yes Guarding due to palpation present (GI), No Rigid due to palpation, No Hernia present, No Palpable mass present and Yes Rebound tenderness present Auscultation: absent bowel sounds and Hypoactive bowel sounds present : General: Yes bladder normal to palpation Back/Spine/Pelvis: Back: no CVA tenderness Skin: General skin exam: normal color Rashes: no rashes Wounds: no wounds Neuro: General: patient oriented x3, moves all extremities, no meningeal signs, no focal motor deficits and CN's II-XI intact bilaterally Extrem: General: normal to inspection Psych: Mental Status: mental status grossly normal Affect: normal affect Attitude: cooperative Course Vital Signs Vital signs: Vital Signs Temperature 35.7 C L 02/27/25 05:43 Pulse Rate 82 02/27/25 05:43 Respiratory Rate 24 H 02/27/25 05:43 Blood Pressure 155/96 H 02/27/25 05:43 Pulse Oximetry 99 02/27/25 05:43 Oxygen Delivery Room Air 02/27/25 05:43 Temperature 35.7 C L 02/27/25 05:43 Pulse Rate 82 02/27/25 05:43 Respiratory Rate 24 H 02/27/25 05:43 Blood Pressure 155/96 H 02/27/25 05:43 Pulse Oximetry 100 02/27/25 06:28 Oxygen Delivery Non-Rebreather Mask 02/27/25 06:28 Oxygen Flow Rate 6 02/27/25 06:28 MDM - Abdominal Pain MDM Narrative Medical decision making narrative: patient is a 29-year-old male with right lower quadrant abdominal pain. History of colitis. We will do a GI abdominal pain workup at this time. Pain control. Lab Data Attestation: I reviewed the patient's lab results. 02/27/25 05:50 02/27/25 05:50 Labs: Lab Results 02/27/25 02/27/25 02/27/25 Range/Units 05:46 05:50 07:15 WBC 8.2 (4.8-10.8) K/mm3 RBC 5.09 (4.70-6.10) M/mm3 Hgb 14.4 (14.0-18.0) g/dL Hct 44.1 (40.0-54.0) % MCV 86.6 (78.0-102.0) fL MCH 28.3 (27.0-31.0) pg MCHC 32.7 (32-36) g/dL RDW 13.1 (11.6-14.4) % Plt Count 314 (150-420) K/mm3 MPV 11.0 (8.7-11.0) fl Immature Gran % (Auto) Not Reportable Neut % (Auto) Not Reportable Lymph % (Auto) Not Reportable [place] % (Auto) Not Reportable Eos % (Auto) Not Reportable Baso % (Auto) Not Reportable Lymph # (Auto) Not Reportable [place] # (Auto) Not Reportable Eos # (Auto) Not Reportable Baso # (Auto) Not Reportable Abs Immat Gran (auto) Not Reportable Absolute Neuts (auto) Not Reportable Absolute Nucleated RBC Not Reportable Total Counted 100 Neutrophils % (Manual) 41 L (46-73) % Band Neutrophils % 2 (0-6) % Lymphocytes % (Manual) 42 (18-44) % Monocytes % (Manual) 14 H (3-9) % Eosinophils % (Manual) 1 (1-6) % Nucleated RBC % Not Reportable Abs Neuts (Manual) 3.52 (1.3-6.7) K/mm3 Abs Lymphs (Manual) 3.44 (1.1-4.5) K/mm3 Abs Monocytes (Manual) 1.14 H (0.1-0.90) K/mm3 Absolute Eos (Manual) 0.08 (0.02-0.50) K/mm3 Platelet Estimate Adequate (Adequate) Schistocytes Not Reportable PT 11.4 (9.50-12.1) Seconds INR 1.0 APTT 24.5 (23.9-30.70) Sec Sodium 141 (137-145) mmol/L Potassium 2.9 L (3.4-5.0) mmol/L Chloride 107 (98-107) mmol/L Carbon Dioxide 24 (22-30) mmol/L Anion Gap 10 (4-12) mmol/L BUN 10 (9-20) mg/dL Creatinine 1.25 (0.7-1.3) mg/dL Estim Creat Clear Calc Not Reportable Estimated GFR > 60 (59 - ) Glucose 118 H (65-110) mg/dL Calculated Osmolality 292 (285-295) mOsm/kg Lactic Acid 2.1 H (0.4-2.0) mmol/L Calcium 9.0 (8.4-10.2) mg/dL Magnesium 1.7 (1.6-2.3) mg/dL Total Bilirubin 0.4 (0.2-1.3) mg/dL AST 28 (17-59) U/L ALT 22 (6-50) U/L Alkaline Phosphatase 70 (38-126) U/L Total Protein 7.5 (6.3-8.2) g/dL Albumin 4.1 (3.5-5.1) g/dL Lipase 44 (23-300) U/L Urine Color Pending Urine Appearance Pending Urine pH Pending Ur Specific [place] Pending Urine Protein Pending Urine Glucose (UA) Pending Urine Ketones Pending Ur Blood (Man) Pending Urine Nitrate Pending Urine Bilirubin Pending Urine Urobilinogen Pending Leukocyte Esterase Rfl Pending Imaging Data Attestation: I personally reviewed and interpreted this imaging study as follows: Radiologist's impression: ITS Impressions Abdomen/Pelvis CT 02/27/25 06:32 IMPRESSION: 1. Right UPJ stone with mild hydronephrosis. 2: Nonobstructing right nephrolithiasis. Discharge Plan Discharge Clinical Impression: Right ureteral calculus, Hypokalemia Patient Disposition: Home Condition: Improved Instructions: Kidney Stones (ED) Patient Language: Turkmen Prescriptions: New tamsulosin [Flomax] 0.4 mg capsule 0.4 mg PO DAILY Qty: 20 0RF hydrocodone-acetaminophen 5-325 mg tablet 1 tablet PO Q8H PRN (Reason: pain) Qty: 20 0RF Rx Instructions: 1-2 tabs per dose Medrol 2 mg tablet 2 mg PO BID 3 Days Qty: 6 0RF No Action ferrous sulfate 325 mg (65 mg iron) Tablet 324 mg PO DAILY Qty: 30 1RF famotidine 40 mg tablet azathioprine 50 mg tablet ofloxacin 0.3 % drops 10 drp RIGHT EAR DAILY 7 Days Qty: 10 0RF Rx Instructions: May dispense eyedrops if more economical Follow-up/Referrals: David,HALEY Gutierrez [Primary Care Provider] - Time of Disposition: 07:22
--- OUTSIDE RECORDS SUMMARY | 2025-02-27 05:45 | XMS_ITS | Clinical Summary ---
Author Organization [facility] Address [address] [place] [address] Care Team Providers Care Offset Plate Preparation Supervisor Name Role Phone Unavailable Primary Care Provider Unavailabl e Source Comments [facility],non-owned Affiliates and Associated Physician Practices is amultiple site organization consisting of ambulatory clinics and hospital sitesin [place], [place], [place] and [place]. This disclosure is being madepursuant to the Care Everywhere program and may not contain all information available regarding this patient. 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 Gender Identity Not on file Sexual Orientation Not on file Plan of Treatment Health Maintenance Due Date Last Done Comments HIV SCREENING 2012 HEPATITIS C SCREENING 10/13/2015 DTAP/TDAP/TD VACCINES (1 - Tdap) 2016 HEPATITIS B VACCINE (1 of 3 - 19+ 3-dose series) 2016 COVID-19 VACCINE ( - 2023-2 5 season) 2024 DEPRESSION SCREENING 08/06/2024 HPV VACCINE (1 - 3-dose SCDM series) 2024 INFLUENZA VACCINE (#1) 2025 ZOSTER VACCINE (1 of 2) 10/18/2047 HIB VACCINE Aged Out No longer eligi ble based on patient's age to complete this topic MENINGOCOCCAL (Group B) VACC INE SHARED DECISION-MAKING Aged Out No longer eligibl e based on patient's age to complete this topic MENINGOCOCCAL GROUPS A/C/Y/W VACCINE Aged Out No longer eligible b ased on patient's age to complete this topic PNEUMOCOCCAL VACCINE Aged Out No long er eligible based on patient's age to complete this topic
--- OUTSIDE RECORDS SUMMARY | 2025-02-27 05:45 | XMS_ITS | Encounter Summary ---
Author Organization [facility] Address [facility] [place] [address] Care Team Providers Care Spring Tier Name Role Phone Tee Mcbride MD Unavailable [phone] No, Physician Primary Care Provider [phone] Encounter Details Date Type Department Care Team (Late st Contact Info) Description 02/25/2025 Orders Only [facility] Gastroenterology at [address] [place] [address] Tee Mcbride MD [address] [place] [address] [address] [place] [address] Social History Tobacco Use Types Packs/Day Years Used Date Smoking Tobacco: Never Smokeless Tobacco: Never Alcohol Use Standard Drinks/Week Comments No 0 (1 standard drink = 0.6 oz pur e alcohol) AUDIT-C Answer Date Recorded Q1: How often do you have a drink containing alc ohol? Monthly or less 2024 Q2: How many drinks containi ng alcohol do you have on a typical day when you are drinking? 1 or 2 2024 Frequency of Binge Drinking Not on file 10/04 PHQ-2 Answer Date Recorded PHQ-2 Score 0 09/25/2019 Personal Safety Answer Date Recorded Have you ever been in or are you currently in a harmful physical or emotional relationship or is someone making you feel afraid or unsafe? 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 70 tablet 1 02/25/2025 documented in this encounter Plan of Treatment Upcoming Encounters Date Type Department Care Team (Late st Contact Info) Description 09/28/2025 8:55 AM HORSE BREAKER Hospital Encounter [address] [address] Tee Mcbride MD [address] [place] [address] DR BROCK [address] [place] [id number] 09/28/2025 8:55 AM HORSE BREAKER - 09/28/2025 9:25 AM HORSE BREAKER Surgery [address] [address] Tee Mcbride MD [address] [place] [address] DR BROCK [address] [place] [id number] COLONOSCOPY Scheduled Procedures Name Priority Associated Diagnoses Date/Ti ks COLONOSCOPY Ulcerative pancolitis (HCC) Rectal bleeding Hx of colonic polyps 09/28/2025 8:55 AM HORSE BREAKER documented as of this encounter Visit Diagnoses Not on filedocumented in this encounter Discontinued Medications Medication Sig Discontinue Reason Start Date End Da te budesonide EC (ENTOCORT EC) 3 mg 24 hr capsule Take 3 capsules (9 mg total) by mouth every morning Therapy completed 09/29/2024 02/25/2025 documented as of this encounter Additional Health Concerns Infection Onset Date Last Indicated Resolved Time C. difficile 04/07/2022 04/07/2022 documented as of this encounter Care Teams Spring Tier Relationship Specialty Start Date End Date No, Physician PCP - General 02/24/25 Tee Mcbride MD Consulting Physician Gastroenterology 04/23/22 documented as of this encounter
--- OUTSIDE RECORDS SUMMARY | 2025-02-27 05:45 | XMS_ITS | Referral Summary ---
Author Organization [facility] Medical Office Building B Address [address] [place] [address] Care Team Providers Care Direct Service Worker Name Role Phone Tee Mcbride MD Unavailable No, Physician Primary Care Provider [phone] Encounters Date Type Department Care Team Description 02/25/2025 Orders Only [facility] Gastroenterology at [address] [place] [address] Tee Mcbride MD 02/24/2025 Telephone [facility] Gastroenterology at [address] [place] [address] Patience Dia MA 02/24/2025 6:04 PM CDT - 02/24/2025 9:18 PM CDT Emergency [facility] Emergency Department [address] [place] [address] Pancolitis (HCC) (Primary Dx); Acute cystitis without hematuria Discharge Disposition: Discharge to home or self care 02/04/2025 Orders Only [facility] [address] [facility] [address] [place] [address] Rosio Desai RN 02/02/2025 Documentation [facility] [address] [facility] [address] [place] [address] Linus Bob RPh 01/30/2025 Results Follow-Up [facility] Gastroenterology at [address] [place] [phone] Adeel Vasquez NP CRP (acute phase), Erythrocyte sedimentation rate, Comprehensive metabolic panel, Additional followed-up results: 4 01/24/2025 10:40 AM CDT Lab [address] [address] Ulcerative pancolitis with rectal bleeding (HCC) from Last 3 Months Allergies Active Allergy Reactions Criticality Noted Date Comments Hay Fever And Allergy Relief Eye irritation,Rhinitis Low 09/12/2018 Medications Stelara injection Inject 1 mL (90 mg total) under the skin every 8 (eight) weeks 1 mL 6 07/28/20 24 Active mesalamine (ASACOL HD) 800 mg EC tabletIndications :Ulcerative Colitis Take 2 tablets (1,600 mg total) by mouth 3 (three) times a day 180 tablet 1 10/28/19 25 Active guselkumab (TREMFYA) 10 mg/mL solutionIndicatio ns:Ulcerative Colitis Starter dose: 200 mg IV at 0, 4, and 8 weeks. 60 mL 02/03/20 25 Active guselkumab (Tremfya Pen) 100 mg/mL pen injectorIndicatio ns:Ulcerative Colitis Tremfya UC maintenance dosing: Starting at week 16, inject 100 mg subcutaneously every eight weeks. 1 mL 6 02/03/20 25 Active ciprofloxacin (CIPRO) 500 mg tablet Take 1 tablet (500 mg total) by mouth 2 (two) times a day 14 tablet 02/25/20 25 Active metroNIDAZOLE (FLAGYL) 500 mg tablet Take 1 tablet (500 mg total) by mouth 2 (two) times a day 14 tablet 02/25/20 25 Active metoclopramide (REGLAN) 10 mg tablet Take 1 tablet (10 mg total) by mouth every 6 (six) hours 30 tablet 02/25/20 25 Active predniSONE (DELTASONE) 10 mg tablet Take 4 tablets by mouth daily for 7 days, then 3 tablets by mouth daily for 7 days, then 2 tablets by mouth daily for 7 days, then 1 tablet by mouth daily for 7 days. 70 tablet 1 02/26/20 25 Active ondansetron ODT (ZOFRAN-ODT) 4 mg disintegrating tablet Take 1 tablet (4 mg total) by mouth every 8 (eight) hours as needed for nausea or vomiting 30 tablet 3 02/26/20 25 025 Active budesonide EC (ENTOCORT EC) 3 mg 24 hr capsule Take 3 capsules (9 mg total) by mouth every morning 90 capsule 11 09/29/19 25 025 Disconti nued(The rapy complete d) Active Problems Problem Noted Date Diagnosed Date Ulcerative pancolitis 2024 Rectal bleeding 2024 Hx of colonic polyps 2024 Personal history of colonic polyps 02/04/2024 Encounter for screening colonoscopy 02/04/2024 History of Clostridioides difficile colitis 09/07 Pseudopolyposis of colon 10/02/2023 Fecal urgency 06/18/2023 Abnormal international normal ratio (INR) 2021 Tachycardia 04/23/2022 Secondary hypertension 04/23/2022 Acute anal fissure x 2 04/21/2022 Coagulopathy 04/21/2022 Oral thrush 04/20/2022 Severe malnutrition 04/18/2022 ABLA (acute blood loss anemia) 04/16/2022 Insomnia 04/16/2022 Bloody diarrhea 04/13/2022 C. difficile colitis 04/12/2022 Low serum vitamin B12 11/27/2021 Assessment & Plan (11/27/2021 12:19 PM CDT): B12 was in the low normal level last year. He has been on B12 supplements. Will check B12 and folate levels in the next visit. Discussed with the patient he should be taking folate supplements as well within his multivitamins Gastroesophageal reflux disease 11/07/2020 Assessment & Plan (08/25/2021 11:41 AM WINE CONSULTANT): Doing well with famotidine daily. Will continue the same. Assessment & Plan (11/07/2020 12:28 PM CDT): He has mild gastroesophageal reflux disease symptoms. Will start Pepcid 40 mg daily. Iron deficiency anemia 08/05/2020 Overview (08/05/2020): Added automatically from request for surgery [id number] Assessment & Plan (11/27/2021 12:18 PM CDT): Hemoglobin level improved with iron supplements. Will continue iron supplements twice daily. Assessment & Plan (08/25/2021 11:42 AM WINE CONSULTANT): Hemoglobin level is coming up nicely with the B12 and iron supplements. No current sign of GI bleeding. Will check labs again in 3 months. Assessment & Plan (05/24/2021 4:41 PM CDT): Continue iron supplements. May use iron pills every other day. Assessment & Plan (02/15/2021 1:12 PM CDT): Will repeat iron levels today and blood count. If low then will continue iron supplements. Assessment & Plan (11/07/2020 12:27 PM CDT): So far this has been attributed to blood loss with his the hematochezia and bloody diarrhea from the ulcerative colitis. Will repeat labs today. If iron levels low then will repeat the infusion. Assessment & Plan (08/05/2020 12:21 PM WINE CONSULTANT): Will schedule EGD for full evaluation. Continue iron supplements twice daily. Repeat labs and iron levels today. Nausea and vomiting 03/11/2020 Assessment & Plan (03/11/2020 1:54 PM CDT): Almost daily since being in ER. Denies bloody or coffee ground emesis. Stick to low fat, low fiber, bland diet. Will give zofran to use prn for N/V. BMI 29.0-29.9,adult 03/11/2020 Rib pain on left side 01/30/2020 Assessment & Plan (01/30/2020 1:25 PM CDT): Pt says this has been ongoing since he was younger. He sometimes gets sharp pain with inhalation in rib area. He says this last episode was worse than usual and was worried about an ulcer. No indication that patient has ulcer. The pain is in the left rib area and not abdomen. He does not take any NSAID's or blood thinners. No hematemesis or black stools. He gets heartburn occasionally but not often. No signs of ulcer. Pt possibly has costochondritis. Pt told this will improve on its own but if pain is bad he can take tylenol. Avoid NSAID's due to UC. Pt advised to f/u with PCP if symptoms become worse. Her verbalized understanding. BMI 30.0-30.9,adult 01/30/2020 Ulcerative colitis 09/12/2018 Assessment & Plan (11/27/2021 12:16 PM CDT): Doing well in clinical remission. On Imuran 75 mg daily and sulfasalazine. Will continue the same. Follow-up in 4-6 months Assessment & Plan (08/25/2021 11:41 AM WINE CONSULTANT): Continues in remission. Asymptomatic. Increase Imuran to 75 mg daily. Follow-up in 3 months with labs before the visit. Our goal is for Imuran 100 daily If tolerated. Assessment & Plan (05/24/2021 4:41 PM CDT): Patient is finally in remission at this time. Will continue Imuran 50 mg daily along with Lialda. Follow-up in 3 months. Will need to check Imuran metabolite level and possibly increase Imuran to 100 mg then. Assessment & Plan (02/15/2021 1:12 PM CDT): Symptoms slowly improving with Imuran 50 mg daily. Will continue the same along with the Lialda. We will check Imuran Thioprine metabolites level to see if we need to increase the dose. Follow-up in the office an 2 or 3 months. Assessment & Plan (11/07/2020 12:29 PM CDT): Patient still have some symptoms. Will start Imuran 50 mg daily. Will continue Apriso. Also advised to continue to use Canasa suppositories once daily per rectum and finish the whole suppositories he already have at home. Follow-up in 3 months. Assessment & Plan (08/05/2020 12:22 PM WINE CONSULTANT): Patient have the persistent symptoms. Likely because he stopped the Apriso. He is currently on prednisone tapering dose. Clinically he was feeling well. His stool is getting more formed. He does see blood and I am not sure if this bleeding from the ulcer colitis can contribute to this severe anemia noted recently. We will restart Apriso. Will make arrangement to start on Humira although he and his mother had some concern about immunosuppressive medications. Will discuss this issue further and try to get his insurance approval meanwhile. Assessment & Plan (05/20/2020 1:59 PM CDT): Doing better and in clinical remission at this time. Lab testing for exposure to tuberculosis as well as TPMT enzymes in preparation to start immunosuppressive agents. Continue Apriso for the time being. Follow-up in 3 months Assessment & Plan (04/08/2020 2:53 PM CDT): Patient has recent flare up of his the left-sided ulcer colitis and he is back into clinical remission with prednisone. Will continue tapering the prednisone. Will add Flagyl 500 mg 3 times daily for 10 days. Follow-up in the office in 1 month. Also discussed with the patient to start multivitamins daily. Assessment & Plan (09/25/2019 10:42 AM WINE CONSULTANT): It seems he is getting symptoms again. Will schedule colonoscopy. Will start Canasa suppositories per rectum if he can get it to be used once daily for at least 3 months. Assessment & Plan (07/24/2019 7:40 PM WINE CONSULTANT): Back in remission now, continue Apriso and finish the prednisone. Follow up 2 months. Continue Apriso indefinitely. Will start Uceris along next visit for 6-12 months. Assessment & Plan (07/06/2019 7:25 PM WINE CONSULTANT): Patient are flaring now because he stopped his medications. Start Apriso 1.5 grams daily, antibiotics (Levaquin and Flagyl) for 1 week, and start Prednisone for 4 weeks. Follow up 1 month. Assessment & Plan (09/12/2018 3:36 PM WINE CONSULTANT): Doing well on Apriso. Will continue the same. Will try to get Canasa for his use if available. Resolved Problems Problem Noted Date Diagnosed Date Resolved Date Gastrointestinal hemorrhage 08/05/2020 08/25/2021 Overview (08/05/2020): Added automatically from request for surgery [id number] Heartburn 01/30/2020 08/25/2021 Assessment & Plan (01/30/2020 1:29 PM CDT): Occurs very occasionally. He says he usually lies down and eventually goes away. Advised to make sure he sits up and drinks water. Trying chewing TUMS first, if this doesn't work can try 1-2 famotidine 20mg prn. Ulcerative colitis with complication 09/25/2019 04/08/2020 Overview (09/25/2019): Added automatically from request for surgery [id number] Assessment & Plan (03/11/2020 1:53 PM CDT): Pt was in ER with recent flare-up of UC. He was given prednisone 40mg to take for 5 days. He has about 2 days left. Pt is still having issues with the pain and N/V and not much improvement since hospitalization. Noted that he had elevated WBC. Will repeat CBC due to elevated WBC and ESR, CRP today. Will give patient course of flagyl for 7 days. He was instructed to follow low fat, low fiber liquid diet until he starts to feel better. He should continue his Apriso daily. Pt says this is his first flare that he's had since diagnosis about 2 years ago. If symptoms worsen or red flag symptoms occur he should go to ER. He verbalized understanding. Assessment & Plan (01/30/2020 1:27 PM CDT): Pt recently started budesonide daily. He is seeing very small amount of red blood in stool but this has overall improved. Pt also taking Apriso daily. He says he is having BM's 3-4 times daily with urgency a couple times a week. He says symptoms slowly improving. He should continue the budesonide with the Apriso and f/u with [facility] as scheduled. Immunizations Immunization Administration Dates Next Due DTaP, Unspecified 10/20/2002, 9,04/23/1998,02/08/1998 ,1997 Hep B, Unspecified 04/23/1998,1997, 998 HiB 03/10/1999,04/23/1998,02/08/1998 ,1997 IPV 10/20/2002 MMR 10/20/2002,03/10/1999 Meningococcal Conjugate (Menveo) 03/19/2015 OPV 04/23/1998,02/08/1998,1997 Tdap 07/07/2020(Deferred: Other),03/2012 Varicella 10/28/1998 Social History Tobacco Use Types Packs/Day Years Used Date Smoking Tobacco: Never Smokeless Tobacco: Never Tobacco Cessation:Counseling Given: Not Answered Alcohol Use Standard Drinks/Week Comments No 0 [...] on file Legal Sex Male 2:45 PM WINE CONSULTANT Gender Identity Not on file Sexual Orientation Not on file Last Filed Vital Signs Vital Sign Reading Time Taken Comments Blood Pressure 137/87 02/24/2025 9:00 PM CDT Pulse 80 02/24/2025 9:00 PM CDT Temperature 36 C (96.8 F) 02/24/2025 2:24 PM CDT Respiratory Rate 18 02/24/2025 2:24 PM CDT Oxygen Saturation 99% 02/24/2025 9:00 PM CDT Inhaled Oxygen Concentration - - Weight 102.1 kg (225 lb) 02/24/2025 2:24 PM CDT Height 177.8 cm (5' 10) 02/24/2025 2:24 PM CDT Body Mass Index 32.28 02/24/2025 2:24 PM CDT Plan of Treatment Upcoming Encounters Date Type Department Care Team (Late st Contact Info) Description 09/28/2025 8:55 AM WINE CONSULTANT Hospital Encounter [address] [address] Tee Mcbirde MD [address] [facility] [address] [place] [address] 09/28/2025 8:55 AM WINE CONSULTANT - 09/28/2025 9:25 AM WINE CONSULTANT Surgery [address] [address] Tee Mcbride MD [address] [facility] [address] [place] [address] COLONOSCOPY Scheduled Procedures Name Priority Associated Diagnoses Date/Ti me COLONOSCOPY Ulcerative pancolitis (HCC) Rectal bleeding Hx of colonic polyps 09/28/2025 8:55 AM WINE CONSULTANT Procedures Procedure Name Priority Date/Time Associated Diagnosis Comments CT ABDOMEN PELVIS W CONTRAST ED 02/24/2025 7:16 PM CDT URINALYSIS, MICROSCOPIC ONLY STAT 02/24/2025 2:49 PM CDT URINE CULTURE STAT 02/24/2025 2:49 PM CDT URINALYSIS AND REFLEX TO MICROSCOPIC AND CULTURE STAT 02/24/2025 2:49 PM CDT EGFR STAT 02/24/2025 2:29 PM CDT DIFFERENTIAL AUTO STAT 02/24/2025 2:2 9 PM CDT LIPASE STAT 02/24/2025 2:29 PM CDT COMPREHENSIVE METABOLIC PANEL STAT 02/24/2025 2:29 PM CDT CBC WITH AUTO DIFFERENTIAL STAT 02/24/2025 2:29 PM CDT EGFR Routine 01/24/2025 10:57 AM CDT Ulcerative pancolitis with rectal bleeding (HCC) DIFFERENTIAL AUTO Routine 01/24/2025 10: 57 AM CDT Ulcerative pancolitis with rectal bleeding (HCC) USTEKINUMAB QUANTITATION WITH ANTIBODIES Routine 01/24/2025 10:57 AM CDT Ulcerative pancolitis with rectal bleeding (HCC) CBC WITH AUTO DIFFERENTIAL Routine 01/24/2025 10:57 AM CDT Ulcerative pancolitis with rectal bleeding (HCC) COMPREHENSIVE METABOLIC PANEL Routine 01/24/2025 10:57 AM CDT Ulcerative pancolitis with rectal bleeding (HCC) ERYTHROCYTE SEDIMENTATION RATE Routine 01/24/2025 10:57 AM CDT Ulcerative pancolitis with rectal bleeding (HCC) CRP (ACUTE PHASE) Routine 01/24/2025 10: 57 AM CDT Ulcerative pancolitis with rectal bleeding (HCC) HEPATITIS PANEL, ACUTE Routine 12:02 PM CDT Ulcerative colitis with rectal bleeding, unspecified location (HCC) from Last 3 Months or Most Recently Relevant to Health Maintenance Results * CT Abdomen Pelvis W Contrast (02/24/2025 7:16 PM CDT) Anatomical Region Laterality Modality Body N/A Computed Tomogra phy 02/24/2025 8:05 PM CDT Narrative 02/24/2025 8:16 PM CDT EXAM DESCRIPTION: CT ABDOMEN PELVIS W CONTRAST REASON FOR STUDY: diffuse abd pain, elevated wbc abdominal pain, diarrhea and abdominal cramping. History of ulcerative colitis in the past. Onset Sunday TECHNIQUE: CT scan of the abdomen and pelvis performed with intravenous and without oral contrast using helical scanning technique with dynamic intravenous contrast injection. Reconstructed coronal and sagittal MPR images reviewed. All images stored on PACS. Automated exposure control was used as a dose optimization technique for this examination. CONTRAST TYPE/DOSE: 100mL of IOVERSOL 350 MG IODINE/ML INTRAVENOUS SYRINGE injected via intravenous COMPARISON: 04/07/2022 FINDINGS: LOWER CHEST: No significant pulmonary abnormalities. No effusion. LIVER: Normal size. No identified cystic or solid masses. GALLBLADDER: No stones identified. No wall thickening or inflammatory changes. BILE DUCTS: No intrahepatic or extrahepatic ductal dilatation. SPLEEN: Normal size. No focal lesions. PANCREAS: No identified cystic or solid masses. No significant calcifications. No adjacent inflammation or peripancreatic fluid collections. Pancreatic duct not dilated. ADRENALS: Normal. KIDNEYS/URINARY TRACT: No identified significant cystic or solid masses. There is no evidence of hydronephrosis, but there is a 4 mm stone at the right ureteropelvic junction. No hydronephrosis or hydroureter. Symmetric enhancement. Urinary bladder is unremarkable. GI: There is diffuse thickening of the wall of the entire colon suggesting inflammatory or infectious colitis. No bowel obstruction or abscess. Submucosal fat deposition is seen throughout the entire colon suggesting chronic inflammation. Normal appendix. PERITONEUM: No ascites or free air. Subcentimeter mildly prominent lymph nodes in the central mesentery, stable compared with 04/07/2022. Stable enlarged node in the right lower quadrant mesentery on image 78 measuring 2.3 cm x 1.5 cm. RETROPERITONEUM: No mass or adenopathy. REPRODUCTIVE: No significant abnormality. VASCULATURE: No abdominal aortic aneurysm. MUSCULOSKELETAL: No significant abnormality. OTHER: Small periumbilical hernia containing only fat. IMPRESSION: 1. Diffuse thickening of the wall of the entire colon suggesting inflammatory or infectious colitis. No bowel obstruction or abscess. Submucosal fat deposition is seen throughout the entire colon suggesting chronic inflammation. 2. Stable enlarged node in the right lower quadrant mesentery measuring 2.3 cm x 1.5 cm. 3. 4 mm stone at the right ureteropelvic junction. No evidence of hydronephrosis. 4. Small periumbilical hernia containing only fat. THIS IS AN ELECTRONICALLY VERIFIED FINAL REPORT 02/24/2025 8:16 PM - Electronically signed by Marshall Steele M.D. KT: PORSHA Report ID: [id number] Reading Location: [id number] Procedure Note Marshall Steele MD - 02/24/2025 EXAM DESCRIPTION: CT ABDOMEN PELVIS W CONTRAST REASON FOR STUDY: diffuse abd pain, elevated wbc abdominal pain, diarrhea and abdominal cramping. History of ulcerativecolitis in the past. Onset Sunday TECHNIQUE: CT scan of the abdomen and pelvis performed with intravenousand without oral contrast using helical scanning technique with dynamic intravenous contrast injection. Reconstructed coronal and sagittal MPRimages reviewed. All images stored on PACS. Automated exposure control was usedas a dose optimization technique for this examination. CONTRAST TYPE/DOSE: 100mL of IOVERSOL 350 MG IODINE/ML INTRAVENOUSSYRINGE injected via intravenous COMPARISON: 04/07/2022 FINDINGS: LOWER CHEST: No significant pulmonary abnormalities. No effusion. LIVER: Normal size. No identified cystic or solid masses. GALLBLADDER: No stones identified. No wall thickening or inflammatory changes. BILE DUCTS: No intrahepatic or extrahepatic ductal dilatation. SPLEEN: Normal size. No focal lesions. PANCREAS: No identified cystic or solid masses. No significant calcifications. No adjacent inflammation or peripancreatic fluidcollections. Pancreatic duct not dilated. ADRENALS: Normal. KIDNEYS/URINARY TRACT: No identified significant cystic or solid masses. There is no evidence of hydronephrosis, but there is a 4 mm stone at theright ureteropelvic junction. No hydronephrosis or hydroureter. Symmetric enhancement. Urinary bladder is unremarkable. GI: There is diffuse thickening of the wall of the entire colonsuggesting inflammatory or infectious colitis. No bowel obstruction or abscess. Submucosal fat deposition is seen throughout the entire colon suggesting chronic inflammation. Normal appendix. PERITONEUM: No ascites or free air. Subcentimeter mildly prominentlymph nodes in the central mesentery, stable compared with 04/07/2022. Stable enlarged node in the right lower quadrant mesentery on image 78 measuring2.3 cm x 1.5 cm. RETROPERITONEUM: No mass or adenopathy. REPRODUCTIVE: No significant abnormality. VASCULATURE: No abdominal aortic aneurysm. MUSCULOSKELETAL: No significant abnormality. OTHER: Small periumbilical hernia containing only fat. IMPRESSION: 1. Diffuse thickening of the wall of the entire colon suggesting inflammatory or infectious colitis. No bowel obstruction or abscess. Submucosal fat deposition is seen throughout the entire colon suggesting chronic inflammation. 2. Stable enlarged node in the right lower quadrant mesentery measuring2.3 cm x 1.5 cm. 3. 4 mm stone at the right ureteropelvic junction. No evidence of hydronephrosis. 4. Small periumbilical hernia containing only fat. THIS IS AN ELECTRONICALLY VERIFIED FINAL REPORT 02/24/2025 8:16 PM - Electronically signed by Marshall Steele M.D. KT: PORSHA Report ID: [id number] Reading Location: [place] [address] PROCEDURE S Final Result * (ABNORMAL) Urinalysis reflex to microscopic and culture Urine (02/24/2025 2:49 PM CDT) Color, ur Yellow Yellow Clarity, ur Turbid(A) Clear [facility] ([place]) Specific gravity, ur 1.031(H) 1.003 - 1.030 [facility] ([place]) pH, urine 5.5 [facility] ([place]) Comment: Interpretive Data U rine pH is affected by diet, medications, systemic acid-base disturbances, and renal tubular function. pH may affect urinary stone formation. For example, urine pH below 6.0 may help reduce the tendency for calcium phosphate stones and pH greater than 6.0 may reduce the tendency for uric acid stone formation. Source: [employer] Current Interpretive Data was last revised on 2017 Protein, ur ql 1+(A) Negative [facility] ([place]) Glucose, ur ql Negative Negative [facility] ([place]) Ketones, ur 1+(A) Negative [facility] ([place]) Bilirubin, ur Negative Negative [facility] ([place]) Blood, ur 2+(A) Negative [facility] ([place]) Urobilinogen, ur <2.0 <2.0 mg/dL [facility] ([place]) Nitrite, ur Negative Negative [facility] ([place]) Leukocyte esterase, ur 1+(A) Negative [facility] ([place]) UA reflex comment Reflex to microscopic UA will be performed. [facility] ([place]) Urine 02/24/2025 2:49 PM CDT 02/24/2025 2:59 PM CDT Cedric Banerjee MD LAB MICROBIOLOGY - GENERAL O RDERABLES Final Result Performing Organization Address City/[facility]/ZIP Co de Phone Number [facility] ([place]) 1 [facility] [place] [place] [address] * (ABNORMAL) Urinalysis, microscopic only (02/24/2025 2:49 PM CDT) WBC, ur 11-20(A) 0 - 5 /HPF RBC, ur 0-2 0 - 2 /HPF [facility] ([place]) Mucous, ur Present(A) CEROM[facility] Campos ([place]) Hyaline casts, ur 1-5 0 - 10 /LPF [facility] ([place]) Culture Reflex Comment Reflex to urine culture will be performed. [facility] ([place]) Urine 02/24/2025 2:49 PM CDT 02/24/2025 2:59 PM CDT Cedric Banerjee MD LAB URINE ORDERABLES Final R esult Performing Organization Address City/[facility]/ZIP Co de Phone Number [facility]OM[facility] ([place]) 1 [facility] [place] [place] [address] * Urine culture Urine (02/24/2025 2:49 PM CDT) Report Final Report: Less than 100,000 colonies/mL (clinically insignificant growth based on current clinical standards) Comment:Testing performed by : [facility], [address] [facility], [place]., [address] Organism (CLINICALLY INSIGNIFICANT GROWTH [facility] ([place]) Urine 02/24/2025 2:49 PM CDT 02/24/2025 8:12 PM CDT Narrative [facility] ([place]) - 02/26/2025 1:40 PM CDT Urine culture reflexed based upon urinalysis results. Testing performed by [facility] ([phone]) Cedric Banerjee MD LAB MICROBIOLOGY - GENERAL O RDERABLES Final Result [facility] [place]) [address] [facility] Department of [address] [place] [address] * eGFR (02/24/2025 2:29 PM CDT) eGFR >90 >=60 mL/min/1. 73 m2 Comment: Interpretive Data Reference Interval Normal >/= 90 mL/min/1.73m2 Mildly decreased* 60 - 89 mL/min/1.73m2 Mildly to moderately decreased 45 - 59 mL/min/1.73m2 Moderately to severely decreased 30 - 44 mL/min/1.73m2 Severely decreased 15 - 29 mL/min/1.73m2 Kidney Failure < 15 mL/min/1.73m2 *Relative to young adult level Estimated glomerular filtration rate is determined by the 2020 CKD-EPI equation recommended by the National Kidney Foundation (A Unifying Approach to GFR Estimation: Recommendations of the NKF-ASK Task Force on Reassessing the Inclusion of Race in Diagnosing Kidney Disease, JASN 2020). The CKD-EPI equation should not be used for patients with unstable renal function and has not been validated in children and those over 70. Current interpretive data was last reviewed 2021. Blood 02/24/2025 2:29 PM CDT 02/24/2025 2:32 PM CDT Cedric Banerjee MD LAB BLOOD ORDERABLES Final R esult [facility] ([place]) 1 [facility] Department of [address] [place] [address] * (ABNORMAL) Differential, auto (02/24/2025 2:29 PM CDT) Neutrophil abs 8.17(H) 1.50 - 6.50 K/cumm Imm gran abs 0.02 0.00 - 0.10 K/cumm [facility] ([place]) Lymphocyte abs 1.25 0.80 - 3.30 K/cumm [facility] ([place]) Monocyte abs 1.27(H) 0.20 - 0.80 K/cumm [facility] ([place]) Eosinophil abs 0.22 0.00 - 0.50 K/cumm [facility] ([place]) Basophil abs 0.05 0.00 - 0.10 K/cumm [facility] ([place]) Neutrophil pct 74.3 % [facility] ([place]) Comment: Interpretive Data Percent cell count reference ranges are not reported, since discordance with absolute values may lead to misinterpretation of CBC data. Current Interpretive Data was last revised on 2017. Imm gran pct 0.2 % [facility] ([place]) Comment: Interpretive Data Percent cell count reference ranges are not reported, since discordance with absolute values may lead to misinterpretation of CBC data. Current Interpretive Data was last revised on 2017. Lymphocyte pct 11.4 % [facility] ([place]) Comment: Interpretive Data Percent cell count reference ranges are not reported, since discordance with absolute values may lead to misinterpretation of CBC data. Current Interpretive Data was last revised on 2017. Monocyte pct 11.6 % [facility] ([place]) Comment: Interpretive Data Percent cell count reference ranges are not reported, since discordance with absolute values may lead to misinterpretation of CBC data. Current Interpretive Data was last revised on 2017. Eosinophil pct 2.0 % [facility] ([place]) Comment: Interpretive Data Percent cell count reference ranges are not reported, since discordance with absolute values may lead to misinterpretation of CBC data. Current Interpretive Data was last revised on 2017. Basophil pct 0.5 % [facility] ([place]) Comment: Interpretive Data Percent cell count reference ranges are not reported, since discordance with absolute values may lead to misinterpretation of CBC data. Current Interpretive Data was last revised on 2017. Blood 02/24/2025 2:29 PM CDT 02/24/2025 2:32 PM CDT Cedric Banerjee MD LAB BLOOD ORDERABLES Final R esult [facility] ([place]) 1 [facility] [place] [address] * (ABNORMAL) CBC with auto differential (02/24/2025 2:29 PM CDT) WBC 10.98(H) 3.80 - 9.90 K/cumm Hgb 15.9 13.0 - 17.5 g/dL [facility]) Hct 49.0 38.9 - 50.3 % [facility] ([place]) Plt 323 150 - 400 K/cumm [facility] ([place]) MPV 10.7 9.1 - 12.3 fL [facility] ([place]) RBC 5.63 4.30 - 5.80 M/cumm [facility] ([place]) MCV 87.0 81.3 - 96.4 fL [facility]) MCH 28.2 27.1 - 33.3 pg [facility] ([place]) MCHC 32.4 32.3 - 35.7 g/dL [facility] ([place]) RDW CV 13.5 11.1 - 14.9 % [facility]) RDW SD 42.8 35.7 - 48.1 fL [facility]) NRBC abs 0.00 0.00 - 0.01 K/cumm [facility] ([place]) Blood Venous blood specimen / Unknown 02/24/2025 2:29 PM CDT 02/24/2025 2:32 PM CDT Cedric Banerjee MD LAB BLOOD ORDERABLES Final R esult [facility] ([place]) 1 [facility] [place] [address] * Lipase (02/24/2025 2:29 PM CDT) Lipase 16 10 - 99 Units/L [facility] ([place]) Blood Venous blood specimen / Unknown 02/24/2025 2:29 PM CDT 02/24/2025 2:32 PM CDT us Cedric Banerjee MD LAB BLOOD ORDERABLES Final R esult [facility] ([place]) 1 [facility] [place] [address] * (ABNORMAL) Comprehensive metabolic panel (02/24/2025 2:29 PM CDT) Sodium 140 135 - 145 mmol/L [facility] ([place]) Potassium, pl 3.7 3.3 - 4.9 mmol/L [facility]) Chloride 105 97 - 110 mmol/L [facility]) CO2 21(L) 22 - 32 mmol/L [facility]) Anion gap 14 2 - 15 mmol/L [facility] ([place]) BUN 11 6 - 25 mg/dL [facility]) Creatinine 0.95 0.80 - 1.30 mg/dL [facility]) Glucose 121 70 - 199 mg/dL [facility]) Comment: Interpretive Data Fasting glucose >/= 126 mg/dl is diagnostic for diabetes. Fasting is defined as no caloric intake for at least 8 hours. Fasting glucose between 100 mg/dl to 125 mg/dl is diagnostic of prediabetes. In a patient with classic symptoms of hyperglycemia or hyperglycemic crisis, a random glucose >/= 200 mg/dl is diagnostic for diabetes. In the absence of unequivocal hyperglycemia, results should be confirmed by repeat testing. The classification and Diagnosis of Diabetes Diabetes Care 2021; 46: S19-S40. Current interpretive data was last revised 2022. Calcium 9.7 8.5 - 10.3 mg/dL [facility]) Bilirubin, total 0.6 0.1 - 1.2 mg/dL [facility]) Protein, pl 8.1 6.5 - 8.5 g/dL [facility]) Albumin 4.4 3.5 - 5.0 g/dL [facility]) Alk phos 86 40 - 130 Units/L [facility]) ALT 16 7 - 55 Units/L [facility]) AST 15 10 - 50 Units/L [facility] ([place]) Blood 02/24/2025 2:29 PM CDT 02/24/2025 2:32 PM CDT Cedric Banerjee MD LAB BLOOD ORDERABLES Final R esult [facility] ([place]) 1 [facility] Department of [address] [place] [address] * Ustekinumab quatitation with antibodies (01/24/2025 10:57 AM CDT) Ustekinumab level 2.5 mcg/mL [facility] Comment: REFERENCE VALUE Lower limit of quantitation = 0.3 mcg/mL ADDITIONAL INFORMATION This test was developed and its performance characteristics determined by [facility] in a manner consistent with CLIA requirements. This test has not been cleared or approved by the U.S. Food and Drug Administration. Anti-Ustekinumab Ab <10 <10 A Units/mL [facility] ([place]) Comment: Absence of detectable [id number]. ADDITIONAL INFORMATION This test was developed and its performance characteristics determined by [facility] in a manner consistent with CLIA requirements. This test has not been cleared or approved by the U.S. Food and Drug Administration. Test Performed by: [facility] [address] [place] [address] Line Patroller: Brian Anderson Ph.D.; CLIA# [id number] Blood 01/24/2025 10:5 7 AM CDT 01/24/2025 11:16 AM CDT Adeel Leelee Vasquez LINUX CONSULTANT LAB BLOOD ORDERABLE S Final Result [facility] ([place]) 1 [facility] Department of [address] [place] [address] [facility] * eGFR (01/24/2025 10:57 AM CDT) eGFR >90 >=60 mL/min/1. 73 m2 Comment: Interpretive Data Reference Interval Normal >/= 90 mL/min/1.73m2 Mildly decreased* 60 - 89 mL/min/1.73m2 Mildly to moderately decreased 45 - 59 mL/min/1.73m2 Moderately to severely decreased 30 - 44 mL/min/1.73m2 Severely decreased 15 - 29 mL/min/1.73m2 Kidney Failure < 15 mL/min/1.73m2 *Relative to young adult level Estimated glomerular filtration rate is determined by the 2020 CKD-EPI equation recommended by the National Kidney Foundation (A Unifying Approach to GFR Estimation: Recommendations of the NKF-ASK Task Force on Reassessing the Inclusion of Race in Diagnosing Kidney Disease, JASN 2020). The CKD-EPI equation should not be used for patients with unstable renal function and has not been validated in children and those over 70. Current interpretive data was last reviewed 2021. Blood 01/24/2025 10:5 7 AM CDT 01/24/2025 11:16 AM CDT Adeel Vasquez LINUX CONSULTANT LAB BLOOD ORDERABLE S Final Result [facility] ([place]) 1 [facility] Department of [address] [place] [address] * Differential, auto (01/24/2025 10:57 AM CDT) Neutrophil abs 4.42 1.50 - 6.50 K/cumm Imm gran abs 0.04 0.00 - 0.10 K/cumm [facility] ([place]) Lymphocyte abs 1.80 0.80 - 3.30 K/cumm [facility] ([place]) Monocyte abs 0.66 0.20 - 0.80 K/cumm [facility] ([place]) Eosinophil abs 0.27 0.00 - 0.50 K/cumm [facility] ([place]) Basophil abs 0.03 0.00 - 0.10 K/cumm [facility] ([place]) Neutrophil pct 61.3 % [facility] ([place]) Comment: Interpretive Data Percent cell count reference ranges are not reported, since discordance with absolute values may lead to misinterpretation of CBC data. Current Interpretive Data was last revised on 2017. Imm gran pct 0.6 % [facility] ([place]) Comment: Interpretive Data Percent cell count reference ranges are not reported, since discordance with absolute values may lead to misinterpretation of CBC data. Current Interpretive Data was last revised on 2017. Lymphocyte pct 24.9 % [facility] ([place]) Comment: Interpretive Data Percent cell count reference ranges are not reported, since discordance with absolute values may lead to misinterpretation of CBC data. Current Interpretive Data was last revised on 2017. Monocyte pct 9.1 % [facility] ([place]) Comment: Interpretive Data Percent cell count reference ranges are not reported, since discordance with absolute values may lead to misinterpretation of CBC data. Current Interpretive Data was last revised on 2017. Eosinophil pct 3.7 % [facility] ([place]) Comment: Interpretive Data Percent cell count reference ranges are not reported, since discordance with absolute values may lead to misinterpretation of CBC data. Current Interpretive Data was last revised on 2017. Basophil pct 0.4 % [facility] ([place]) Comment: Interpretive Data Percent cell count reference ranges are not reported, since discordance with absolute values may lead to misinterpretation of CBC data. Current Interpretive Data was last revised on 2017. Blood 01/24/2025 10:5 7 AM CDT 01/24/2025 11:16 AM CDT Adeel Vasquez LINUX CONSULTANT LAB BLOOD ORDERABLE S Final Result [facility] ([place]) 1 [facility] [place] [address] * CBC with auto differential (01/24/2025 10:57 AM CDT) WBC 7.22 3.80 - 9.90 K/cumm Hgb 13.8 13.0 - 17.5 g/dL [facility] ([place]) Hct 42.7 38.9 - 50.3 % [facility]) Plt 280 150 - 400 K/cumm [facility] ([place]) MPV 10.5 9.1 - 12.3 fL [facility]) RBC 4.79 4.30 - 5.80 M/cumm [facility] ([place]) MCV 89.1 81.3 - 96.4 fL [facility] ([place]) MCH 28.8 27.1 - 33.3 pg [facility]) MCHC 32.3 32.3 - 35.7 g/dL [facility] ([place]) RDW CV 13.7 11.1 - 14.9 % [facility]) RDW SD 44.5 35.7 - 48.1 fL [facility]) NRBC abs 0.00 0.00 - 0.01 K/cumm [facility]) Blood 01/24/2025 10:5 7 AM CDT 01/24/2025 11:16 AM CDT Adeel Vasquez LINUX CONSULTANT LAB BLOOD ORDERABLE S Final Result [facility] ([place]) 1 [facility] [place] [address] * (ABNORMAL) Erythrocyte sedimentation rate (01/24/2025 10:57 AM CDT) Erythrocyte sedimentation rate 19(H) 1 - 15 mm/hr Blood 01/24/2025 10:5 7 AM CDT 01/24/2025 11:16 AM CDT Adeelmarek [facility] LAB BLOOD ORDERABLE S Final Result [facility] ([place]) 1 [facility] [address] [place] [address] * (ABNORMAL) CRP (acute phase) (01/24/2025 10:57 AM CDT) CRP 11.2(H) <=10.0 mg/L Blood 01/24/2025 10:5 7 AM CDT 01/24/2025 11:16 AM CDT Adeelmarek [facility] LAB BLOOD ORDERABLE S Final Result Performing Organization Address City/[facility] Co de Phone Number [facility] ([place]) 1 [facility] [address] [place] [address] * Comprehensive metabolic panel (01/24/2025 10:57 AM CDT) Sodium 141 135 - 145 mmol/L Potassium, pl 4.0 3.3 - 4.9 mmol/L [facility] ([place]) Chloride 103 97 - 110 mmol/L [facility] ([place]) CO2 26 22 - 32 mmol/L [facility] ([place]) Anion gap 12 2 - 15 mmol/L [facility] ([place]) BUN 14 6 - 25 mg/dL [facility] ([place]) Creatinine 0.89 0.80 - 1.30 mg/dL [facility] ([place]) Glucose 92 70 - 199 mg/dL [facility] ([place]) Comment: Interpretive Data Fasting glucose >/= 126 mg/dl is diagnostic for diabetes. Fasting is defined as no caloric intake for at least 8 hours. Fasting glucose between 100 mg/dl to 125 mg/dl is diagnostic of prediabetes. In a patient with classic symptoms of hyperglycemia or hyperglycemic crisis, a random glucose >/= 200 mg/dl is diagnostic for diabetes. In the absence of unequivocal hyperglycemia, results should be confirmed by repeat testing. The classification and Diagnosis of Diabetes Diabetes Care 2021; 46: S19-S40. Current interpretive data was last revised 2022. Calcium 9.4 8.5 - 10.3 mg/dL [facility] ([place]) Bilirubin, total 0.3 0.1 - 1.2 mg/dL [facility] ([place]) Protein, pl 7.4 6.5 - 8.5 g/dL [facility] ([place]) Albumin 4.2 3.5 - 5.0 g/dL [facility] ([place]) Alk phos 88 40 - 130 Units/L [facility]) ALT 21 7 - 55 Units/L [facility]) AST 14 10 - 50 Units/L [facility]) Blood 01/24/2025 10:5 7 AM CDT 01/24/2025 11:16 AM CDT Adeel Vasquez LINUX CONSULTANT LAB BLOOD ORDERABLE S Final Result [facility] ([place]) 1 [facility] [place] [address] * Hepatitis panel, acute (04/25/2022 12:02 PM CDT) Hep A IgM Nonreactive Nonreactive [facility] ([place]) Comment: Interpretive Data: If Hep A IgM Ab is reported as Equivocal, a new sample should be drawn in two weeks for testing. Current interpretive data was last revised on 19. Testing performed by: [facility], [address] [place] [address]., [id number] Hep B core IgM Nonreactive Nonreactive [facility] ([place]) Comment: Interpretive Data If HepB Core IgM Ab is reported as Equivocal, a new sample should be drawn in two weeks for testing. Current interpretive data was last revised on 19. Testing performed by: [address] [address] Hep C Ab Nonreactive Nonreactive [facility] ([place]) Comment: Interpretive Data Nonreactive: Antibodies to HCV not detected. Does NOT exclude the possibility of recent exposure to HCV. Equivocal: Equivocal for HCV antibodies. Supplemental molecular testing will be automatically performed to determine infection status in accordance with current CDC screening recommendations. Reactive: Positive for HCV antibodies. This may represent current or past HCV infection. Supplemental molecular testing will be automatically performed to determine current infection status in accordance with current CDC screening recommendations. Interpretive data was last revised on 2019. Testing performed by: [facility], [address] [place] [address]., [id number] HepBsAg Nonreactive Nonreactive [facility] ([place]) Comment:Testing performed by : [facility], [address] [place] [address]., [id number] Blood 04/25/2022 12:0 2 PM CDT 04/25/2022 6:37 PM CDT [facility] MICROBIOLOGY - GENER AL ORDERABLES Final Result [facility] ([place]) 1 [facility] [place] [address] from Last 3 Months or Most Recently Relevant to Health Maintenance Additional Health Concerns Infection Onset Date Last Indicated C. difficile 04/07/2022 04/07/2022 Insurance [facility] [address] [facility] OPEN ACCESS [facility] ALLEGIANCE Advance Directives For more information, please contact: [phone] * Full Code (Latest Code Status on File) Date Activated Date Inactivated Comments 09/29/2024 10:42 AM 09/29/2024 5:26 PM * Full Code Date Activated Date Inactivated Comments 09/29/2024 10:42 AM 09/29/2024 10:42 AM * Full Code Date Activated Date Inactivated Comments 09/04/2023 11:36 AM 09/04/2023 6:24 PM * Full Code Date Activated Date Inactivated Comments 04/20/2022 12:55 PM 04/23/2022 4:58 PM * Full Code Date Activated Date Inactivated Comments 04/20/2022 12:53 PM 04/20/2022 12:55 PM Care Teams Direct Service Worker Relationship Specialty Start Date End Date No, Physician PCP - General 02/24/25 Tee Mcbride MD Consulting Physician Gastroenterology 04/23/22
--- OUTSIDE RECORDS SUMMARY | 2025-02-27 05:45 | XMS_ITS | Encounter Summary ---
Author Organization [facility] Address [address] [place] [address] Care Team Providers Care General Purchasing Agent Name Role Phone Roger Hernandez Primary Care Provider [phone] Tee Mcbride MD Unavailable [phone] No, Physician Primary Care Provider [phone] Encounter Details Date Type Department Care Team (Latest Contact Info) Description 01/30/2025 Results Follow-Up [facility] Gastroenterology at [address] [place] [address] Adeel Vasquez NP [address] [place] [address] [address] [place] [address] CRP (acute phase), Erythrocyte sedimentation rate, Comprehensive metabolic panel, Additional followed-up results: 4 Social History Tobacco Use Types Packs/Day Years [...] making you feel afraid or unsafe? Denies 09/29/2024 Sex and Gender Information Value Date Recorded Sex Assigned at Not on file Legal Sex Male 2:45 PM CLIENT SERVICE ASSOCIATE Gender Identity Not on file Sexual Orientation Not on file documented as of this encounter Ordered Prescriptions Prescription Sig Dispense Quantity Refills Last Filled Start Date End Date guselkumab (Tremfya Pen) 100 mg/mL pen injectorIndicatio ns:Ulcerative Colitis Tremfya UC maintenance dosing: Starting at week 16, inject 100 mg subcutaneously every eight weeks. 1 mL 6 5 guselkumab (TREMFYA) 10 mg/mL solutionIndicatio ns:Ulcerative Colitis Starter dose: 200 mg IV at 0, 4, and 8 weeks. 60 mL 5 documented in this encounter Miscellaneous Notes * Telephone Encounter - Adeel Vasquez NP - 02/02/2025 8:37 AM CDT Please work on Tremfya loading dose approval- IV. Changing from stelara. * Result Encounter Note - Adeel Vasquez NP - 01/30/2025 9:01 AM CDT Hi [place], CRP and sed rate still remain elevated. Your drug level was within goal range. No evidence of antibody formation. Kidney function, liver function, and blood counts all normal. You have been on Stelara for more than a year correct? There is another medication, Tremfya, through the same drug company that makes Stelara, that may actually work better. I would recommend trying to transition you to that one. It starts with three infusions, then you get to do the injections at home thereafter. Please let me know if you are okay with moving forward with this change and will get started on the prior authorization process. Until then, will keep you on your Stelara without change. Sincerely, LIZ Bowser documented in this encounter Plan of Treatment Upcoming Encounters Date Type Department Care Team (Late st Contact Info) Description 09/28/2025 8:55 AM CLIENT SERVICE ASSOCIATE Hospital Encounter [facility] [address] [place] [address] Tee Mcbride MD [address] [facility] [address] [place] [address] 09/28/2025 8:55 AM CLIENT SERVICE ASSOCIATE - 09/28/2025 9:25 AM CLIENT SERVICE ASSOCIATE Surgery [address] [address] Tee Mcbride MD [address] [facility] [address] [place] [address] COLONOSCOPY Scheduled Procedures Name Priority Associated Diagnoses Date/Ti me COLONOSCOPY Ulcerative pancolitis (HCC) Rectal bleeding Hx of colonic polyps 09/28/2025 8:55 AM CLIENT SERVICE ASSOCIATE documented as of this encounter Visit Diagnoses Not on filedocumented in this encounter Additional Health Concerns Infection Onset Date Last Indicated Resolved Time C. difficile 04/07/2022 04/07/2022 documented as of this encounter Care Teams General Purchasing Agent Relationship Specialty Start Date End Date Roger Hernandez PA [address] [place] [address] PCP - General Family Practice 02/27/18 02/23/25 No, Physician PCP - General 02/24/25 Tee Mcbride MD [address] [place] [address] Consulting Physician Gastroenterology 04/23/22 documented as of this encounter
--- OUTSIDE RECORDS SUMMARY | 2025-02-27 05:45 | XMS_ITS | Clinical Summary ---
Author Organization [facility] [employer] [place] Address [address] [place] [id number] Care Team Providers Care Intramural Director Name Role Phone Unavailable Primary Care Provider Unavailabl e Medications adalimumab (Humira,CF, Pen) 40 mg/0.4 mL Pen Injector Kit Inject 40 mg by subcutaneous injection every 2 weeks. Active Active Problems Problem Noted Date Diagnosed Date Ulcerative colitis 03/14/2023 Family History Medical History Relation Name Comments No Known Problems Brother Diabetes Maternal Grandfather Heart Disease Maternal Grandfather Hypertension Mother Heart Disease Paternal Grandfather No Known Problems Sister Relation Name Status Comments Brother Alive Maternal Grandfather Alive Maternal Grandmother Alive Mother Alive Paternal Grandfather Paternal Grandmother Alive Sister Alive Social History Tobacco Use Types Packs/Day Years Used Date Smoking Tobacco: Never Smokeless Tobacco: Never Tobacco Cessation:Counseling Given: Not Answered Alcohol Use Standard Drinks/Week Comments Never 0 (1 standard drink = 0.6 oz pur e alcohol) Sex and Gender Information Value Date Recorded Sex Assigned at Not on file Legal Sex Male 1:14 PM CDT Gender Identity Not on file Sexual Orientation Not on file Last Filed Vital Signs Vital Sign Reading Time Taken Comments Blood Pressure 122/82 03/14/2023 10:36 AM CDT Pulse 83 03/14/2023 10:36 AM CDT Temperature 36.9 C (98.4 F) 03/14/2023 10:36 AM CDT Respiratory Rate 16 03/14/2023 10:3 6 AM CDT Oxygen Saturation 97% 03/14/2023 10: 36 AM CDT Inhaled Oxygen Concentration - - Weight 105.4 kg (232 lb 6.4 oz) 023 10:36 AM CDT Height 180.3 cm (5' 11) 03/14/2023 10: 36 AM CDT Body Mass Index 32.41 03/14/2023 10:36 AM CDT Plan of Treatment Health Maintenance Due Date Last Done Comments HPV VACCINES (1 - Male 3-dose series) 2012 DTAP/TDAP/TD VACCINES (1 - Tdap) 2016 HEPATITIS B VACCINES (1 of 3 - 19+ 3-dose series) 10/04 INFLUENZA VACCINE (#1) 2025 Insurance [employer] OPEN ACCESS [employer] OPEN ACCESS
--- OUTSIDE RECORDS SUMMARY | 2025-02-27 05:45 | XMS_ITS | Clinical Summary ---
Author Organization [facility] Medical Office Building B Address [address] [place] [address] Care Team Providers Care Night Assistant Name Role Phone Tee Mcbried MD Unavailable [phone] No, Physician Primary Care Provider [phone] Allergies Active Allergy Reactions Criticality Noted Date [...] 11/07/2020 Assessment & Plan (08/25/2021 11:41 AM COMPUTER NUMERIC CONTROL SETTER): Doing well with famotidine daily. Will continue the same. Assessment & Plan (11/07/2020 12:28 PM CDT): He has mild gastroesophageal reflux disease symptoms. Will start Pepcid 40 mg daily. Iron deficiency anemia 08/05/2020 Overview (08/05/2020): Added automatically from request for surgery [id number] Assessment & Plan (11/27/2021 12:18 PM CDT): Hemoglobin level improved with iron supplements. Will continue iron supplements twice daily. Assessment & Plan (08/25/2021 11:42 AM COMPUTER NUMERIC CONTROL SETTER): Hemoglobin level is coming up nicely with [...] infusion. Assessment & Plan (08/05/2020 12:21 PM COMPUTER NUMERIC CONTROL SETTER): Will schedule EGD for full evaluation. Continue [...] months Assessment & Plan (08/25/2021 11:41 AM COMPUTER NUMERIC CONTROL SETTER): Continues in remission. Asymptomatic. Increase Imuran to [...] months. Assessment & Plan (08/05/2020 12:22 PM COMPUTER NUMERIC CONTROL SETTER): Patient have the persistent symptoms. Likely because [...] daily. Assessment & Plan (09/25/2019 10:42 AM COMPUTER NUMERIC CONTROL SETTER): It seems he is getting symptoms again. Will schedule colonoscopy. Will start Canasa suppositories per rectum if he can get it to be used once daily for at least 3 months. Assessment & Plan (07/24/2019 7:40 PM COMPUTER NUMERIC CONTROL SETTER): Back in remission now, continue Apriso and finish the prednisone. Follow up 2 months. Continue Apriso indefinitely. Will start Uceris along next visit for 6-12 months. Assessment & Plan (07/06/2019 7:25 PM COMPUTER NUMERIC CONTROL SETTER): Patient are flaring now because he stopped his medications. Start Apriso 1.5 grams daily, antibiotics (Levaquin and Flagyl) for 1 week, and start Prednisone for 4 weeks. Follow up 1 month. Assessment & Plan (09/12/2018 3:36 PM COMPUTER NUMERIC CONTROL SETTER): Doing well on Apriso. Will continue the same. Will try to get Canasa for his use if available. Resolved Problems Problem Noted Date Diagnosed Date Resolved Date Gastrointestinal hemorrhage 08/05/2020 08/25/2021 Overview (08/05/2020): Added automatically from request for surgery [id number] Heartburn 01/30/2020 08/25/2021 Assessment & Plan (01/30/2020 1:29 PM CDT): Occurs very occasionally. He says he usually lies down and eventually goes away. Advised to make sure he sits up and drinks water. Trying chewing TUMS first, if this doesn't work can try 1-2 famotidine 20mg prn. Ulcerative colitis with complication 09/25/2019 04/08/2020 Overview (09/25/2019): Added automatically from request for surgery [id number] Assessment & Plan (03/11/2020 1:53 PM CDT): [...] Apriso and f/u with Karadaghy as scheduled. Encounters Date Type Department Care Team Description 02/25/2025 Orders Only [facility] Medical Group Gastroenterology at [address] [place] [address] Tee Mcbride MD 02/24/2025 6:04 PM CDT - 02/24/2025 9:18 PM CDT Emergency [facility] Emergency Department [address] [place] [id number] Pancolitis (HCC) (Primary Dx); Acute cystitis without hematuria Discharge Disposition: Discharge to home or self care 02/24/2025 Telephone [facility] Medical Group Gastroenterology at [address] [place] [address] Patience Dia MA 02/04/2025 Orders Only [facility] at [address] [place] [address] Rosio Desai RN 02/02/2025 Documentation [facility] [address] [facility] [address] [place] [address] Linus Bob RPh 01/30/2025 Results Follow-Up [facility] Medical Group Gastroenterology at [address] [place] [address] Adeel Vasquez NP CRP (acute phase), Erythrocyte sedimentation rate, Comprehensive metabolic panel, Additional followed-up results: 4 01/24/2025 10:40 AM CDT Lab [address] [address] Ulcerative pancolitis with rectal bleeding (HCC) from Last 3 Months Immunizations Immunization Administration Dates Next Due DTaP, Unspecified 10/20/2002, 9,04/23/1998,02/08/1998 ,1997 Hep B, Unspecified 04/23/1998,1997, 998 HiB 03/10/1999,04/23/1998,02/08/1998 ,1997 IPV 10/20/2002 MMR 10/20/2002,03/10/1999 Meningococcal Conjugate (Menveo) 03/19/2015 OPV 04/23/1998,02/08/1998,1997 Tdap 07/07/2020(Deferred: Other),03/2012 Varicella 10/28/1998 Surgical History Surgery Date Site/Laterality Comments COLONOSCOPY 01/05/2020 - 02/03/2020 COLONOSCOPY 09/04/2023 COLONOSCOPY 09/29/2024 Medical History Medical History Date Comments Blood in stool, andrez Ulcerative colitis (HCC) Anemia Chronic diarrhea Social History Tobacco Use Types Packs/Day Years [...] on file Legal Sex Male 2:45 PM COMPUTER NUMERIC CONTROL SETTER Gender Identity Not on file Sexual Orientation Not on file Obstetrics History Last Filed Vital Signs Vital Sign Reading [...] st Contact Info) Description 09/28/2025 8:55 AM COMPUTER NUMERIC CONTROL SETTER Hospital Encounter [address] [address] Tee Mcbride MD [address] [place] [address] DR BROCK [address] [place] [address] 09/28/2025 8:55 AM COMPUTER NUMERIC CONTROL SETTER - 09/28/2025 9:25 AM COMPUTER NUMERIC CONTROL SETTER Surgery [address] [address] Tee Mcbride MD [address] [place] [address] DR BROCK [address] [place] [address] COLONOSCOPY Scheduled Procedures Name Priority Associated Diagnoses Date/Ti me COLONOSCOPY Ulcerative pancolitis (HCC) Rectal bleeding Hx of colonic polyps 09/28/2025 8:55 AM COMPUTER NUMERIC CONTROL SETTER Health Maintenance Due Date Last Done Comments Varicella Vaccines (2 of 2 - 2-dose childhood series) 2001 10/28/1998 Regular Well Visit/Exam 18-64 10/18/2015 Depression Screening 09/25/2020 09/25/2019, 09/25/19 DTaP/Tdap/Td Vaccine (7 - Td or Tdap) 03/13/2022 03/13/2012, 10/20/2002, 03/10/1999, Additional history exists HPV Vaccines (1 - 3-dose SCDM series) 2024 Influenza Vaccine (#1) 2025 Hepatitis C Screening Completed 04/25/2022 Hepatitis B Screening Completed 06/09/2024 , 04/23/1998, 1997, Additional history exists Pneumococcal vaccine <65 Aged Out No longer eligible based on patient's age to complete this topic Procedures Procedure Name Priority Date/Time Associated Diagnosis [...] Marshall Steele M.D. KT: PORSHA Report ID: [id number] Reading Location: [id number] Procedure Note Marshall Steele MD - 02/24/2025 [...] Marshall Steele M.D. KT: PORSHA Report ID: [id number] Reading Location: [id number] Jayy DE LEON IM CT PROCEDURE S Final Result * (ABNORMAL) [...] tendency for uric acid stone formation. Source: [facility] Current Interpretive Data was last revised on [...] Reflex to microscopic UA will be performed. [facility] ([place]) Urine 02/24/2025 2:49 PM CDT 02/24/2025 2:59 PM CDT us Cedric Banerjee MD LAB MICROBIOLOGY - GENERAL O RDERABLES Final Result [facility] ([place]) 1 [facility] Department [place] [address] * (ABNORMAL) Urinalysis, microscopic only (02/24/2025 2:49 PM CDT) WBC, ur 11-20(A) 0 - 5 /HPF RBC, ur 0-2 0 - 2 /HPF [facility] ([place]) Mucous, ur Present(A) [facility] ([place]) Hyaline casts, ur 1-5 0 - 10 /LPF [facility] ([place]) Culture Reflex Comment Reflex to urine culture will be performed. [facility] ([place]) Urine 02/24/2025 2:49 PM CDT 02/24/2025 2:59 PM CDT Cedric Banerjee MD LAB URINE ORDERABLES Final R esult Performing Organization Address [facility]/ZIP Co de Phone Number [facility] ([place]) 1 [facility] [place] [address] * Urine culture Urine (02/24/2025 2:49 PM CDT) Report Final Report: Less than 100,000 colonies/mL (clinically insignificant growth based on current clinical standards) Comment:Testing performed by : [facility], [address] [place]., [address] Organism (CLINICALLY INSIGNIFICANT GROWTH [facility] ([place]) Urine 02/24/2025 2:49 PM CDT 02/24/2025 8:12 PM CDT Narrative [facility] ([place]) - 02/26/2025 1:40 PM CDT Urine culture reflexed based upon urinalysis results. Testing performed by [facility] ([phone]) Cedric Banerjee MD LAB MICROBIOLOGY - GENERAL O RDERABLES Final Result Performing Organization Address [facility] Co de Phone Number [facility] ([place]) 1 [facility] [place] [address] * eGFR (02/24/2025 2:29 PM CDT) eGFR [...] LAB BLOOD ORDERABLES Final R esult [facility] ([place]) 1 [facility] Department [place] [address] * (ABNORMAL) Differential, auto (02/24/2025 2:29 PM [...] Final R esult [facility] ([place]) 1 [facility] Department [place] [address] * (ABNORMAL) CBC with auto differential (02/24/2025 [...] RDW CV 13.5 11.1 - 14.9 % [facility] ([place]) RDW SD 42.8 35.7 - 48.1 fL [facility] ([place]) NRBC abs 0.00 0.00 - 0.01 K/cumm [facility] ([place]) Blood Venous blood specimen / Unknown 02/24/2025 2:29 PM CDT 02/24/2025 2:32 PM CDT Cedric Banerjee MD LAB BLOOD ORDERABLES Final R esult [facility] ([place]) 1 [facility] [place] [address] * Lipase (02/24/2025 2:29 PM CDT) [facility] Lipase 16 10 - 99 Units/L [facility] ([place]) Blood Venous blood specimen / Unknown 02/24/2025 2:29 PM CDT 02/24/2025 2:32 PM CDT Cedric Banerjee MD LAB BLOOD ORDERABLES Final R esult [facility] ([place]) 1 [facility] [place] [address] * (ABNORMAL) Comprehensive metabolic panel (02/24/2025 2:29 PM CDT) Pathologist [facility] Sodium 140 135 - 145 mmol/L [facility] ([place]) Potassium, pl 3.7 3.3 - 4.9 mmol/L [facility] ([place]) Chloride 105 97 - 110 mmol/L [facility] ([place]) CO2 21(L) 22 - 32 mmol/L [facility] ([place]) Anion gap 14 2 - 15 mmol/L [facility] ([place]) BUN 11 6 - 25 mg/dL [facility] ([place]) Creatinine 0.95 0.80 - 1.30 mg/dL [facility] ([place]) Glucose 121 70 - 199 [...] classification and Diagnosis of Diabetes Diabetes Care 202; 46: S19-S40. Current interpretive data was last [...] ([place]) AST 15 10 - 50 Units/L [facility] ([place]) Blood 02/24/2025 2:2 9 PM CDT 02/24/2025 2:32 PM CDT Cedric Banerjee MD LAB BLOOD ORDERABLES Final R esult [facility] ([place]) 1 [facility] Department [place] [address] * Ustekinumab quatitation with antibodies (01/24/2025 10:57 AM CDT) Ustekinumab level 2.5 mcg/mL [facility] Comment: REFERENCE VALUE Lower limit of quantitation = 0.3 mcg/mL ADDITIONAL INFORMATION This test was developed and its performance characteristics determined by [facility] in a manner consistent with CLIA requirements. This test has not been cleared or approved by the U.S. Food and Drug Administration. Anti-Ustekinumab Ab <10 <10 A Units/mL [facility] ([place]) Comment: Absence of detectable [id number]. ADDITIONAL INFORMATION This test was developed and its performance characteristics determined by [facility] in a manner consistent with CLIA requirements. This test has not been cleared or approved by the U.S. Food and Drug Administration. Test Performed by: [place] [address] Drafter Directional Survey: Brian Anderson Ph.D.; CLIA# [id number] Blood 01/24/2025 10:5 7 AM CDT 01/24/2025 11:16 AM CDT Adeel Vasquez LOG [facility] LAB BLOOD ORDERABLE S Final Result [facility] ([place]) 1 [facility] Department [place] [address] [facility] * eGFR (01/24/2025 10:57 AM [...] CDT 01/24/2025 11:16 AM CDT Adeel Vasquez [facility] LAB BLOOD ORDERABLE S Final Result [facility] ([place]) 1 [facility] Department [place] [address] * Differential, auto (01/24/2025 10:57 AM CDT) Neutrophil abs 4.42 1.50 - 6.50 K/cumm Imm gran abs 0.04 0.00 - 0.10 K/cumm [facility] ([place]) Lymphocyte abs 1.80 0.80 - [...] CDT 01/24/2025 11:16 AM CDT Adeel Vasquez LOG [facility] LAB BLOOD ORDERABLE S Final Result [facility] ([place]) 1 [facility] Department of Laboratories [place] [id number] * CBC with auto differential (01/24/2025 10:57 [...] RDW CV 13.7 11.1 - 14.9 % [facility] ([place]) RDW SD 44.5 35.7 - 48.1 fL [facility] ([place]) NRBC abs 0.00 0.00 - 0.01 K/cumm [facility] ([place]) Blood 01/24/2025 10:5 7 AM CDT 01/24/2025 11:16 AM CDT [facility]k [facility] BLOOD ORDERABLE S Final Result [facility] ([place]) 1 [facility] [place] [address] * (ABNORMAL) Erythrocyte sedimentation rate (01/24/2025 10:57 AM CDT) Pathologist [facility] Erythrocyte sedimentation rate 19(H) 1 - 15 mm/hr Blood 01/24/2025 10:5 7 AM CDT 01/24/2025 11:16 AM CDT [facility] LAB BLOOD ORDERABLE S Final Result Performing Organization Address City/[facility]/ZIP Co de Phone Number [facility] ([place]) 1 [facility] [place] [address] * (ABNORMAL) CRP (acute phase) (01/24/2025 10:57 AM CDT) Pathologist [facility] CRP 11.2(H) <=10.0 mg/L Blood 01/24/2025 10:5 7 AM CDT 01/24/2025 11:16 AM CDT Adeel Leelee [facility] LAB BLOOD ORDERABLE S Final Result Performing Organization Address City/[facility]/ZIP Co de Phone Number [facility] ([place]) 1 [facility] [place] [address] * Comprehensive metabolic panel (01/24/2025 10:57 AM CDT) Sodium 141 135 - 145 mmol/L Potassium, pl 4.0 3.3 - 4.9 mmol/L [facility] ([place]) Chloride 103 97 - 110 mmol/L [facility] ([place]) CO2 26 22 - 32 mmol/L [facility] ([place]) Anion gap 12 2 - 15 mmol/L [facility] ([place]) BUN 14 6 - 25 mg/dL [facility] ([place]) Creatinine 0.89 0.80 - 1.30 mg/dL [facility] ([place]) Glucose 92 70 - 199 mg/dL [facility] ([place]) [...] 7 AM CDT 01/24/2025 11:16 AM CDT us Adeel Vasquez LOG [facility] LAB BLOOD ORDERABLE S Final Result [facility] ([place]) 1 [facility] Department [place] [address] * Hepatitis panel, acute (04/25/2022 12:02 PM CDT) Hep A IgM Nonreactive Nonreactive [facility] ([place]) Comment: Interpretive Data: If Hep A IgM Ab is reported as Equivocal, a new sample should be drawn in two weeks for testing. Current interpretive data was last revised on 19. Testing performed by: [address] [address] Hep B core IgM Nonreactive Nonreactive [facility] ([place]) Comment: Interpretive Data If HepB Core IgM Ab is reported as Equivocal, a new sample should be drawn in two weeks for testing. Current interpretive data was last revised on 19. Testing performed by: [address] [address] Hep C Ab Nonreactive Nonreactive [facility] ([place]) Comment: Interpretive Data Nonreactive: Antibodies to [...] last revised on 2019. Testing performed by: [facility], [address] [place] [address]., [address] HepBsAg Nonreactive Nonreactive [facility] ([place]) Comment:Testing performed by : [address] [address] Blood 04/25/2022 12:0 2 PM CDT 04/25/2022 6:37 PM CDT us Carmencita DE [facility]ON LAB MICROBIOLOGY - GENER AL ORDERABLES Final Result [facility] ([place]) 1 [facility] Department [place] [address] from Last 3 Months or Most Recently Relevant to Health Maintenance Additional Health Concerns Infection Onset Date Last Indicated C. difficile 04/07/2022 04/07/2022 Insurance [facility] [address] [facility] CIGMELODIE OPEN ACCESS [employer] ALLEGIANCE Advance Directives For more information, please contact: [phone] * Full Code (Latest Code Status on [...] 12:53 PM 04/20/2022 12:55 PM Care Teams Night Assistant Relationship Specialty Start Date End Date No, Physician PCP - General 02/24/25 Tee Mcbride MD Consulting Physician Gastroenterology 04/23/22
[2025-02-27] MEDS: ONDANSETRON INJ 4 MG/2 ML VIAL IV PUSH (05:54)
[2025-02-27] MEDS: MORPHINE SULFATE (*CRX) 2 MG/ML INJ 4 MG IV PUSH (05:54)
[2025-02-27] MEDS: SODIUM CHLORIDE 0.9% IV 1,000 ML 999 ML IV CONT (05:57)
[2025-02-27 05:58] LABS: Hematocrit 44.1 % (40.0-54.0); Hemoglobin 14.4 g/dL (14.0-18.0); Mean Corpuscular HGB Conc 32.7 g/dL (32-36); Mean Corpuscular Hemoglobin 28.3 pg (27.0-31.0); Mean Corpuscular Volume 86.6 fL (78.0-102.0); Platelet Count Result 314 K/mm3 (150-420); Red Blood Count 5.09 M/mm3 (4.70-6.10); White Blood Count 8.2 K/mm3 (4.8-10.8)
[2025-02-27 06:07] LABS: Alanine Aminotransferase 22 U/L (6-50); Albumin Level 4.1 g/dL (3.5-5.1); Alkaline Phosphatase 70 U/L (38-126); Anion Gap 10 mmol/L (4-12); Aspartate Amino Transferase 28 U/L (17-59); Bilirubin,Total 0.4 mg/dL (0.2-1.3); Blood Urea Nitrogen 10 mg/dL (9-20); Calcium 9.0 mg/dL (8.4-10.2); Carbon Dioxide 24 mmol/L (22-30); Chloride 107 mmol/L (98-107); Estimated Glomerular Filt Rate > 60; Glucose 118 mg/dL (65-110); Lipase 44 U/L (23-300); Osmolality Calculated 292 mOsm/kg (285-295); Potassium 2.9 mmol/L (3.4-5.0); Sodium 141 mmol/L (137-145); Total Protein 7.5 g/dL (6.3-8.2)
[2025-02-27 06:10] LABS: INR 1.0; Partial Thromboplastin Time 24.5 Sec (23.9-30.70); Prothrombin Time 11.4 Seconds (9.50-12.1)
[2025-02-27 06:26] LABS: Total Cells Counted 100
[2025-02-27 06:27] LABS: Band Neutrophils Percent 2 % (0-6); Eosinophils Absolute Manual 0.08 K/mm3 (0.02-0.50); Eosinophils Percent Manual 1 % (1-6); Lymphocytes Absolute Manual 3.44 K/mm3 (1.1-4.5); Lymphocytes Percent Manual 42 % (18-44); Monocytes Absolute Manual 1.14 K/mm3 (0.1-0.90); Monocytes Percent Manual 14 % (3-9); Neutrophils Absolute Manual 3.52 K/mm3 (1.3-6.7); Neutrophils Percent Manual 41 % (46-73)
[2025-02-27 06:28] VITALS: O2SAT 100
[2025-02-27 06:29] LABS: Magnesium 1.7 mg/dL (1.6-2.3)
[2025-02-27] MEDS: HYDROmorphone HCL INJ (*CRX) 2 MG/ML VIAL 0.5 MG IV PUSH ×2 (06:40→06:43)
[2025-02-27] MEDS: KCL 20MEQ/0.9% SOD CHL 1,000 ML 100 ML IV CONT (06:41)
[2025-02-27 07:00] VITALS: BP 130/85; PULSE 67; RESP 20; TEMP 36.9; O2SAT 94
[2025-02-27 07:32] LABS: Add Urine Microscopic? YES; Appearance Urine Clear (Clear); Glucose Urine UA Negative (Negative); Leukocyte Esterase Ur Negative LEU/UL (Negative); Nitrate Urine Negative (Negative); Specific Grav Ur <= 1.005 (1.010-1.020)
[2025-02-27] MEDS: TAMSULOSIN HCL 0.4 MG CAPSULE PO (07:38)
[2025-02-27] MEDS: POTASSIUM CHLORIDE 20 MEQ PACKET (FOR LIQUID) 40 MEQ PO (07:39)
[2025-02-27] MEDS: Please add drug allergy info to patient profile. 1 EACH XX (07:42)
[2025-02-27 07:55] VITALS: BP 135/86; PULSE 68; RESP 20; TEMP 37.1; O2SAT 94
--- NOTE | 2025-02-27 08:09 | PC.NURSE ---
0755 pt had 100 ml emesis of liquid while transferring into personal vehicle. states has zofran at home. wants to continue with discharge home.
--- NOTE | 2025-03-02 12:58 | PC.NURSE ---
PRELIMINARY BLOOD CULTURE REPORT; NO GROWTH IN 24 HOURS.
--- NOTE | 2025-03-03 13:12 | PC.NURSE ---
PRELIMINARY BLOOD CULTURE REPORT; NO GROWTH IN 48 HOURS.
--- NOTE | 2025-03-06 13:08 | PC.NURSE ---
blood, final , no growth
== END 2025-02-27 07:55 | disposition home or self-care (01) ==
PROVIDERS: Emergency Provider Emergency Medicine; PCP Physician Assistant
DX: N20.1 Calculus of ureter (principal); E87.6 Hypokalemia
CPT/HCPCS: 36415; 74177; 80053; 81001; 83605; 83690; 83735; 85025; 85610; 85730; 87040; 96365; 96375; 96376; 99284; A9270; J1171; J2270; J2405; J3480; J7030; Q9967